=== PATIENT | female | born 1985 | race Caucasian/White ===

== ENCOUNTER 2020-08-02 08:07 | Outpatient (REF) | payer OTHER, SELFPAY ==
[2020-08-09 05:27] LABS: HPV 16 RNA NOT DETECTED (NOT DETECTED); HPV mRNA E6/E7 Detected (Not Detected)
== END 2020-08-02 08:08 | disposition home or self-care (01) ==
LOC: HO.LAB 08:07
PROVIDERS: Visit Provider Obstetrics & Gynecology
DX: Z01.419 Encounter for gynecological examination (general) (routine) without abnormal findings (principal); N87.0 Mild cervical dysplasia
CPT/HCPCS: 87624; 87625; 88141; 88142

== ENCOUNTER 2020-09-14 07:55 | Outpatient (REF) | payer OTHER, SELFPAY | END 2020-09-14 07:56 | disposition home or self-care (01) | LOC: HO.LAB 07:55 | PROVIDERS: Visit Provider Obstetrics & Gynecology | DX: A63.0 Anogenital (venereal) warts (principal); N87.0 Mild cervical dysplasia | CPT/HCPCS: 57454; 88305 ==

== ENCOUNTER → 2020-10-15 14:57 | Outpatient (BNVA) | payer OTHER, SELFPAY | PROVIDERS: PCP Internal Medicine; Visit Provider Obstetrics & Gynecology | DX: Z76.89 Persons encountering health services in other specified circumstances (principal) ==

== ENCOUNTER 2021-04-02 13:03 | Outpatient (REF) | payer OTHER, SELFPAY ==
--- NOTE | ~2021-04-02 | MM_ITS ---
EXAMINATION: MM DIAGNOSTIC DIGITAL BREAST TOMOSYNTHESIS, BILATERAL US DIAGNOSTIC ULTRASOUND BREAST, RIGHT CLINICAL INFORMATION: 35-year-old with palpable mass outer right breast noted for one month. No prior breast imaging. No known family history breast cancer. The lifetime risk of breast cancer based on the Tyrer-Cuzick Model is 9%. COMPARISON: None (current study represents initial baseline exam). TECHNIQUE: Digital mammography is performed in craniocaudal and mediolateral oblique views. Digital breast tomosynthesis is performed in implant-displaced craniocaudal and implant-displaced mediolateral oblique views. Synthesized 2D images are generated from the tomosynthesis. Computer-aided detection (CAD) is performed for this exam. Additional implant displaced spot right MLO view is obtained. Ultrasound right breast is targeted to the outer and upper outer quadrant. Grayscale imaging and color Doppler are performed without and with harmonics. FINDINGS: There are scattered areas of fibroglandular density (ACR BI-RADS breast composition Category b). There are bilateral implants. The implant margins are smooth. The left breast shows no mass or architectural abnormality. Neither breast shows abnormal calcifications. The right breast has a circumscribed 3 cm mass at site of palpable concern mid 9:00 position. Ultrasound demonstrates an oval hypoechoic mass with scattered internal echoes 8:00 position 3 cm from nipple measuring 3.0 x 1.3 x 2.5 cm. There is no increased or decreased through transmission of sound. Margins are smooth. There is some scattered peripheral color flow. Some scant internal color flow is suggested. Results are discussed with the patient at time of visit. Ultrasound-guided aspiration of the right breast mass is recommended. If the lesion will not fully aspirate, then core sampling would be recommended at same appointment. Results called to medical laboratory technologist (Suzan) for Dr. Nielsen on 04/02/2021. MM/MM tomosynthesis diag imp BI IMPRESSION: 1. Right: 3 cm mass outer right breast corresponding to palpable concern. 2. Left: No mammographic evidence of malignancy. ASSESSMENT: BI-RADS 4: Suspicious (subcategory 4A: Low suspicion for malignancy) RECOMMENDATION: Attempt at ultrasound-guided aspiration. If lesion will not fully aspirate to resolution, then conversion to ultrasound-guided core sampling would be recommended at same appointment. This patient's information was entered into a reminder system with a target due date for their next mammogram.
== END 2021-04-02 13:04 | disposition home or self-care (01) ==
LOC: HO.MAMMO 13:03
PROVIDERS: PCP Internal Medicine; Visit Provider Internal Medicine
DX: N63.14 Unspecified lump in the right breast, lower inner quadrant (principal)
CPT/HCPCS: 76642; 77062; 77066

== ENCOUNTER → 2021-04-05 08:06 | Outpatient (BNVA) | payer OTHER, SELFPAY | PROVIDERS: PCP Internal Medicine; Visit Provider Surgery | DX: R92.8 Other abnormal and inconclusive findings on diagnostic imaging of breast (principal) | CPT/HCPCS: 99202 ==

== ENCOUNTER 2021-04-08 07:46 | Outpatient (REF) | payer OTHER, SELFPAY ==
--- NOTE | ~2021-04-08 | MM_ITS ---
EXAMINATION: MM DIAGNOSTIC DIGITAL MAMMOGRAPHY, RIGHT CLINICAL INFORMATION: Status post ultrasound-guided core biopsy COMPARISON: Mammography: April 02, 2021 TECHNIQUE: Digital mammography is performed in craniocaudal and mediolateral oblique views along with computer-aided detection (CAD). FINDINGS: DIGITAL POST-PROCEDURE MAMMOGRAPHY: Breast density: The tissue contains scattered areas of fibroglandular density. BI-RADS version 5, category B. There are no new mammographic findings demonstrated. The postprocedure 2-view direct digital mammogram reveals satisfactory positioning of the biopsy clip. The patient tolerated the procedure well and, after assuring adequate hemostasis, was discharged in good condition after reviewing postbiopsy breast care instructions. Final pathology results are pending. MM/MM diagnostic mammo unilat RT IMPRESSION: 1. No immediate complication from ultrasound-guided percutaneous biopsy right breast. 2. Ultrasound was used to localize and guide marker clip placement. 3. The 2-view direct digital postprocedure mammogram reveals satisfactory positioning of the biopsy clip. 4. Final pathology results are pending. A separate report with final recommendations will be issued once these results are made available. .
--- NOTE | ~2021-04-08 | US_ITS ---
PROCEDURE: US GUIDED BREAST BIOPSY, RIGHT BREAST CLINICAL INFORMATION: Hypoechoic mass. COMPARISON: 04/02/2021 PROCEDURAL DETAILS: The details of the procedure, as well as the risks, benefits, and alternatives to the procedure were explained to the patient in detail and all of her questions were answered, after which written informed consent was obtained. Site and side were confirmed. Prior to the procedure, sonography revealed at the 8 o'clock position of the right breast approximately 3 cm from nipple, there is a well-circumscribed hypoechoic lesion which is wider than it is tall without internal vascularity. No significant sound shadowing or sound enhancement is identified. The lesion measures approximately 3 cm in largest dimension.. A time-out was performed, the lesion intended for biopsy was targeted, and the skin of the right breast was then prepped and draped in the usual sterile fashion. Using sonographic guidance, sterile technique, and 1% lidocaine without epinephrine for local anesthesia, multiple automated core biopsies were obtained through the targeted area with a 14G spring loaded Achieve core biopsy device. There was real-time confirmation of appropriate needle passage. Sampling was documented. At the completion of tissue sampling, a single stoplight-shaped metallic clip was deposited at the biopsy site. There was no evidence of immediate complication. SPECIMEN: An appropriate sample was obtained. DIGITAL POST-PROCEDURE MAMMOGRAPHY: Breast density: The tissue contains scattered areas of fibroglandular density. BI-RADS version 5, category B. There are no new mammographic findings demonstrated. The postprocedure 2-view direct digital mammogram reveals satisfactory positioning of the biopsy clip. The patient tolerated the procedure well and, after assuring adequate hemostasis, was discharged in good condition after reviewing postbiopsy breast care instructions. Final pathology results are pending. US/US breast ndl core biopsy RT IMPRESSION: 1. No immediate complication from ultrasound-guided percutaneous biopsy right breast. 2. Ultrasound was used to localize and guide marker clip placement. 3. The 2-view direct digital postprocedure mammogram reveals satisfactory positioning of the biopsy clip. 4. Final pathology results are pending. A separate report with final recommendations will be issued once these results are made available.
== END 2021-04-08 07:47 | disposition home or self-care (01) ==
LOC: HO.MAMMO 07:46
PROVIDERS: PCP Internal Medicine; Visit Provider Surgery
DX: R92.8 Other abnormal and inconclusive findings on diagnostic imaging of breast (principal)
CPT/HCPCS: 19083; 77065; 88305

== ENCOUNTER 2021-08-29 14:21 | Outpatient (REF) | payer OTHER, SELFPAY ==
[2021-09-04 09:41] LABS: HPV 16 RNA NOT DETECTED (NOT DETECTED); HPV mRNA E6/E7 rflx Detected (Not Detected)
== END 2021-08-29 14:22 | disposition home or self-care (01) ==
LOC: HO.LAB 14:21
PROVIDERS: PCP Internal Medicine; Visit Provider Obstetrics & Gynecology
DX: Z01.419 Encounter for gynecological examination (general) (routine) without abnormal findings (principal); N87.0 Mild cervical dysplasia
CPT/HCPCS: 87624; 87625; 88142

== ENCOUNTER → 2021-10-14 14:07 | Outpatient (BNVA) | payer OTHER, SELFPAY | PROVIDERS: PCP Internal Medicine; Visit Provider Obstetrics & Gynecology ==

== ENCOUNTER 2021-10-31 11:37 | Outpatient (REF) | payer OTHER, SELFPAY | END 2021-10-31 11:38 | disposition home or self-care (01) | LOC: HO.LAB 11:37 | PROVIDERS: PCP Internal Medicine; Visit Provider Obstetrics & Gynecology | DX: A63.0 Anogenital (venereal) warts (principal); Z32.02 Encounter for pregnancy test, result negative | CPT/HCPCS: 57454; 81025; 88305; 88341; 88342; 88360 ==

== ENCOUNTER → 2021-11-14 14:37 | Outpatient (BNVA) | payer OTHER, SELFPAY | PROVIDERS: PCP Internal Medicine; Visit Provider Obstetrics & Gynecology ==

== ENCOUNTER → 2021-11-25 14:41 | Outpatient (BNVA) | payer OTHER, SELFPAY | PROVIDERS: PCP Internal Medicine; Visit Provider Obstetrics & Gynecology | DX: N87.0 Mild cervical dysplasia (principal) | CPT/HCPCS: 99212 ==

== ENCOUNTER 2021-11-28 06:43 | Day surgery (SDC) | payer OTHER, SELFPAY ==
[2021-11-21 13:30] VITALS: BMI 27.6
--- NOTE | 2021-11-27 10:52 | HO.ANESPROP2 ---
Documented by User: Alisha Santos NP 11/27/21 10:52 HPI - Anesthesia Eval Consult details Narrative: 36yo F for LEEP PMFSH Active Problems Active Problems: All Active Problems (Updated 11/21/21 @ 13:27 by Jennifer Doherty, LOYDA) Well woman exam (Acute) Abnormal ultrasound of breast (Acute) Contraceptive management (Acute) HPV in female (Acute) TOMASA I (cervical intraepithelial neoplasia I) (Acute) Past Medical History Medical History TOMASA I (cervical intraepithelial neoplasia I) COVID-19 vaccine series completed History of asthma Family History Family History Maternal Grandmother Diabetes HTN (hypertension) Surgical History Surgical History Hx of abdominoplasty Hx of appendectomy Hx of breast augmentation Social History Social History Household Members Other:: son (minor child) Are you a primary student career development specialist to a significant other at home: Yes Do you presently have visiting nurse or other home services: No Alcohol intake: never Patient Tobacco Use Status: Never used Tobacco Use of substances other than those prescribed or required for medical reasons: No Are you DNR?: No Advance Directives: No (mother is primary contact/does not have official HCP form) Advance Directives Information Provided: Yes Advance Directives on File: No Recently lost weight without trying: No Eating poorly because of decreased appetite: No Nutrition Risks: No Nutritional Risk Patient : No FDLMP: 11/11/21 Sexual orientation: Straight/Heterosexual Gender identity: Female Meds Allergies Allergy/AdvReac Type Severity Reaction Status Date / Time aspirin Allergy Unknown Unknown Verified 11/25/21 14:59 Home Medications Medication Instructions Recorded Confirmed Last Taken Type albuterol sulfate 90 mcg/actuation 2 puff INHALATION Q4-6H PRN 08/02/20 11/21/21 Unknown History aerosol inhaler (ProAir HFA) etonogestrel 68 mg subdermal 1 implant SUBDERMAL ONCE 08/02/20 11/21/21 Unknown History implant (Nexplanon) Exam Exam Date and Time: November 27, 2021 1052 Height,Weight and Vital Signs: Height 5 ft 1 in Weight 66.224 kg Assessment and Plan Assessment Anesthesia Assessment: Chart Reviewed Documented by User: Khalida Najera MD 11/28/21 08:17 PMF Past Medical History Medical History TOMASA I (cervical intraepithelial neoplasia I) COVID-19 vaccine series completed History of asthma Family History Family History Maternal Grandmother Diabetes HTN (hypertension) Surgical History Surgical History Hx of abdominoplasty Hx of appendectomy Hx of breast augmentation History of Problems with Anesthesia: No Social History Social History Household Members Other:: son (minor child) Are you a primary student career development specialist to a significant other at home: Yes Do you presently have visiting nurse or other home services: No Alcohol intake: never Patient Tobacco Use Status: Never used Tobacco Use of substances other than those prescribed or required for medical reasons: No Are you DNR?: No Advance Directives: No (mother is primary contact/does not have official HCP form) Advance Directives Information Provided: Yes Advance Directives on File: No Recently lost weight without trying: No Eating poorly because of decreased appetite: No Nutrition Risks: No Nutritional Risk Patient : No FDLMP: 11/11/21 Sexual orientation: Straight/Heterosexual Gender identity: Female Meds Allergies Allergy/AdvReac Type Severity Reaction Status Date / Time aspirin Allergy Unknown Unknown Verified 11/25/21 14:59 Home Medications Medication Instructions Recorded Confirmed Last Taken Type albuterol sulfate 90 mcg/actuation 2 puff INHALATION Q4-6H PRN 08/02/20 11/21/21 Unknown History aerosol inhaler (ProAir HFA) etonogestrel 68 mg subdermal 1 implant SUBDERMAL ONCE 08/02/20 11/21/21 Unknown History implant (Nexplanon) Exam Airway Mallampati Class: II TM Dist: >3cm Neck ROM: Full Loose/Missing/Broken Teeth: No Heart: RRR Lungs: CTA Assessment and Plan Assessment Anesthesia Assessment: Anesthesia Plan Discussed Final Anesthetic Review History of Problems with Anesthesia: No NPO: Yes ASA Class: II Final Preanesthetic Review: Meds/Allgs Chart Reviewed, Consent Obtained/Reviewed and Anes Risks/Benef Reviewed Patient Risk: Low Procedure Risk: Low Anesthetic Plan Anesthetic Plan: GA Disposition: Standard PACU
[2021-11-28] VITALS (10 sets, daily range): BP systolic 107–135; BP diastolic 62–82; PULSE 67–103; RESP 16–18; TEMP 36.5; O2SAT 99–100
[2021-11-28 07:07] LABS: UPreg QC Valid YES; Urine Pregnancy NEGATIVE (NEGATIVE)
[2021-11-28] MEDS: Lactated Ringers 1,000 ML 100 ML IVCONT (07:09)
--- NOTE | 2021-11-28 07:37 | MHC.SHP ---
Pre-Procedural Eval Section A Date of Service: 11/28/21 The patient is an INPATIENT: No Changes since office visit: No Cold of Flu in the past 2 weeks, No New Medical Problems, No Changes in Medication and No Patient answered all questions The History & Physical has been completed within 30 days and I have reviewed it.: Yes Section B Chief Complaint: C1N1 Allergies: Allergies Allergy/AdvReac Type Severity Reaction Status Date / Time aspirin Allergy Unknown Unknown Verified 11/25/21 14:59 Plan Diagnosis/Plan: Unchanged I have reviewed the history and physical and performed a pertinent physical examination on my patient. No changes have occurred unless specified.
[2021-11-28] MEDS: Scopolamine 1.5 MG PATCH.TD.3 EAR-BEHIND (08:26)
--- NOTE | 2021-11-28 09:00 | P.BOP_ITS ---
Brief Operative Note Date of Service: 11/28/21 Pre-op diagnosis: Persistent TOMASA 1 with negative ECC Post-op diagnosis: same Procedure: LEEP Surgeon: Myron Pham MD Anesthesia: MAC, local and other (Paracervical block) Was an Turret Punch Press Operator used for this Procedure?: No Estimated blood loss (mL): 0 Pathology: other (Ant+post Cerv lip) Condition: stable Disposition: other (Home)
--- NOTE | 2021-11-28 09:01 | W.PM.OPN ---
Operative Note Operative Note Date of Service: 11/28/21 Narrative: Preop diagnosis: Persistent TOMASA 1 with negative ECC Operation: LEEP Post op diagnosis: same Anesthesia: paracervical block with MAC Complications: none Pathology: Anterior and Posterior cervical lip QBL: minimal Procedure: The patient was put in the dorsal lithotomy position, was prepped and draped in the usual sterile fashion. A sterile speculum was inserted inside the patient vagina. Using Lugol solution the cervix with Dyed with Lugol solution to identifiy the abnormal demarcating line. 10 cc of Marcaine0.5% with epinephrine were given at 2,4 , 8, and 10 o'clock. Using a medium-size loop wire, the anterior cervical lip was excised followed by the posterior cervical lip. Hemostasis was assured using cautery and Monsel solution. All instruments were taken out of the patient's vaginal cavity. the patient tolerated the procedure well and was discharged home with the following instructions: call if temperature is above 100.4, vaginal bleeding, abdominal pain or nausea or vomiting. Follow-up in the office in 2 weeks for postop visit
[2021-11-28] MEDS: fentaNYL citrate/PF 100 MCG/2 ML VIAL 25 MCG IVPUSH (09:31)
[2021-11-28] MEDS: Acetaminophen 325 MG TABLET 650 MG PO (09:31)
[2021-11-28] MEDS: oxyCODONE HCl Immed Release 5 MG TABLET PO (09:32)
== END 2021-11-28 10:50 | disposition home or self-care (01) ==
PROVIDERS: PCP Internal Medicine; Visit Provider Obstetrics & Gynecology
PROC: 0UBC7ZZ Excision of Cervix, Via Natural or Artificial Opening (ICD-10-PCS; CPT 57522; principal; 2021-11-28 08:20)
DX: N87.0 Mild cervical dysplasia (principal); J45.909 Unspecified asthma, uncomplicated; Z88.8 Allergy status to other drugs, medicaments and biological substances
CPT/HCPCS: 57522; 81025; 88307; J2250; J2405; J3010

== ENCOUNTER → 2021-12-12 15:52 | Outpatient (BNVA) | payer OTHER, SELFPAY | PROVIDERS: Visit Provider Obstetrics & Gynecology ==

== ENCOUNTER → 2022-06-11 11:48 | Outpatient (BNVA) | payer OTHER, SELFPAY | PROVIDERS: PCP Internal Medicine; Visit Provider Obstetrics & Gynecology | DX: Z30.09 Encounter for other general counseling and advice on contraception (principal); Z97.5 Presence of (intrauterine) contraceptive device | CPT/HCPCS: 99212 ==

== ENCOUNTER → 2022-06-25 14:37 | Outpatient (BNVA) | payer OTHER, SELFPAY | PROVIDERS: PCP Internal Medicine; Visit Provider Surgery | DX: D24.1 Benign neoplasm of right breast (principal) | CPT/HCPCS: 99212 ==

== ENCOUNTER 2022-07-16 05:57 | Day surgery (SDC) | payer OTHER, SELFPAY ==
[2022-07-11 09:59] VITALS: BMI 27.0
--- NOTE | 2022-07-15 08:24 | P.CONAN_ITS ---
Documented by User: Alisha Santos NP 07/15/22 08:24 HPI - Anesthesia Eval Consult details Narrative: 36yo F for Right Right Breast Mass Excision of Phyllodes Tumor PMFSH Active Problems Active Problems: All Active Problems (Updated 06/27/22 @ 10:04 by Regulo Murphy MD) Well woman exam (Acute) Abnormal ultrasound of breast (Acute) Contraceptive management (Acute) HPV in female (Acute) Family planning (Acute) Benign phyllodes tumor of right breast (Acute) TOMASA I (cervical intraepithelial neoplasia I) (Acute) Past Medical History Medical History TOMASA I (cervical intraepithelial neoplasia I) COVID-19 vaccine series completed History of asthma Scoliosis Family History Family History Maternal Grandmother Diabetes HTN (hypertension) Surgical History Surgical History History of loop electrical excision procedure (LEEP) Hx of abdominoplasty Hx of appendectomy Hx of breast augmentation (2017) History of Problems with Anesthesia: No Social History Social History Household Members Other:: son (minor child) Are you a primary critical care registered nurse to a significant other at home: Yes Do you presently have visiting nurse or other home services: No Alcohol intake: never Patient Tobacco Use Status: Never used Tobacco Are you DNR?: No Advance Directives: No Advance Directives Information Provided: Yes Recently lost weight without trying: No Sexual orientation: Straight/Heterosexual Gender identity: Female Meds Allergies Allergy/AdvReac Type Severity Reaction Status Date / Time aspirin Allergy Unknown Unknown Verified 06/25/22 14:48 Home Medications Medication Instructions Recorded Confirmed Last Taken Type albuterol sulfate 90 mcg/actuation 2 puff inhalation Q4-6H PRN 08/02/20 07/11/22 Unknown History aerosol inhaler (ProAir HFA) Wheezing etonogestrel 68 mg subdermal 1 implant subdermal ONCE 08/02/20 06/27/22 Unknown History implant (Nexplanon) Exam Exam Date and Time: July 15, 2022 0824 Height,Weight and Vital Signs: Height 5 ft 1 in Weight 64.864 kg Assessment and Plan Assessment Anesthesia Assessment: Chart Reviewed Final Anesthetic Review History of Problems with Anesthesia: No Documented by User: Marysol Gonzalez MD 07/16/22 07:59 [facility] Past Medical History Medical History TOMASA I (cervical intraepithelial neoplasia I) COVID-19 vaccine series completed History of asthma Scoliosis Functional capacity: independent ambulation Patient : No Family History Family History Maternal Grandmother Diabetes HTN (hypertension) Family history of problems with anesthesia: No Surgical History Surgical History History of loop electrical excision procedure (LEEP) Hx of abdominoplasty Hx of appendectomy Hx of breast augmentation (2017) Social History Social History Household Members Other:: son (minor child) Are you a primary critical care registered nurse to a significant other at home: Yes Do you presently have visiting nurse or other home services: No Alcohol intake: never Patient Tobacco Use Status: Never used Tobacco Are you DNR?: No Advance Directives: No Advance Directives Information Provided: Yes Recently lost weight without trying: No Sexual orientation: Straight/Heterosexual Gender identity: Female Meds Allergies Allergy/AdvReac Type Severity Reaction Status Date / Time aspirin Allergy Unknown Unknown Verified 06/25/22 14:48 Home Medications Medication Instructions Recorded Confirmed Last Taken Type albuterol sulfate 90 mcg/actuation 2 puff inhalation Q4-6H PRN 08/02/20 07/11/22 Unknown History aerosol inhaler (ProAir HFA) Wheezing etonogestrel 68 mg subdermal 1 implant subdermal ONCE 08/02/20 06/27/22 Unknown History implant (Nexplanon) Exam Airway Mallampati Class: II TM Dist: >3cm Heart: RRR Lungs: CTA Assessment and Plan Final Anesthetic Review Family History of Problems with Anesthesia: No ASA Class: II Final Preanesthetic Review: No Changes in Pt Med Stat, Meds/Allgs Chart Reviewed, Consent Obtained/Reviewed and Anes Risks/Benef Reviewed Patient Risk: Low Procedure Risk: Low Anesthetic Plan Anesthetic Plan: GA Disposition: Standard PACU
[2022-07-16 06:18] VITALS: BP 122/74; PULSE 61; RESP 18; TEMP 36.4; O2SAT 100
[2022-07-16 06:18] LABS: UPreg QC Valid YES; Urine Pregnancy NEGATIVE (NEGATIVE)
[2022-07-16] MEDS: Lactated Ringers 1,000 ML 100 ML IVCONT (06:31)
--- NOTE | 2022-07-16 07:26 | MHC.SHP ---
Pre-Procedural Eval Section A Date of Service: 07/16/22 The patient is an INPATIENT: No Changes since office visit: Yes Patient answered all questions; No Cold of Flu in the past 2 weeks, No New Medical Problems and No Changes in Medication The History & Physical has been completed within 30 days and I have reviewed it.: Yes Section B Chief Complaint: Benign neoplasm of right breast Allergies: Allergies Allergy/AdvReac Type Severity Reaction Status Date / Time aspirin Allergy Unknown Unknown Verified 06/25/22 14:48 Plan Diagnosis/Plan: Unchanged I have reviewed the history and physical and performed a pertinent physical examination on my patient. No changes have occurred unless specified.
--- NOTE | 2022-07-16 08:18 | P.OP_ITS ---
Operative Note Operative Note Date of Service: 07/16/22 Narrative: Preoperative diagnosis: phyllodes tumor right breast Postoperative diagnosis: same Procedure: excision phyllodes tumor right breast (lumpectomy) Surgeon: Regulo Murphy MD Division Superintendent: Elizabeth Ordonez PA-C, Rahul MEJIA Anesthesia: general LMA Indications for procedure: 36-year-old female patient with enlarging lesion in right breast at the 9 o'clock position felt to be a phyllodes tumor. Operative findings: 4 cm round phyllodes tumor excised with a rim of normal breast tissue. Specimen: Right breast phyllodes tumor Estimated blood loss: 5 mL Complications: none Procedure details: patient brought to the OR placed in a supine position. After administering general anesthesia the patient's right breast was prepped with ChloraPrep and draped in a sterile fashion. A surgical time-out was called the consent confirmed. Patient received preoperative antibiotics and Venodyne boots were in place. Local anesthesia was placed between the 8 in 10 o'clock position in the areola. A curvilinear incision was made at the margin of the areola and skin in the same region. This was carried out through subcutaneous tissue. The skin flap was then created using electrocautery over the palpable mass. Allis clamps were then used to bring up the lesion within the incision. Electrocautery was then used to dissect inferior, superior, and posterior to the lesion. The lateral margin was then excised and the lesion passed off the table. Lesion was marked with sutures on the lateral, superior, and deep margins. Wounds were then irrigated with saline solution and checked for hemostasis. Deep breast tissue was then reapproximated using interrupted 3-0 Polysorb sutures. Dermis was then reapproximated using interrupted 3-0 Polysorb sutures. Skin was closed using a running subcuticular 4-0 Polysorb suture. Steri-Strips, 2 x 2 gauze and Tegaderm were then applied. The patient tolerated the procedure well. Sponge, instrument, and needle counts reported as correct. Patient was transferred to PACU in stable condition.
[2022-07-16 08:30] VITALS: BP 124/80; PULSE 75; RESP 16; TEMP 36.1; O2SAT 97
[2022-07-16 08:35] VITALS: BP 118/73; PULSE 63; RESP 16; O2SAT 98
[2022-07-16 08:40] VITALS: BP 122/78; PULSE 60; RESP 16; O2SAT 98
[2022-07-16 08:45] VITALS: BP 125/84; PULSE 62; RESP 16; TEMP 36.1; O2SAT 98
[2022-07-16 09:00] VITALS: BP 132/79; PULSE 51; RESP 16; TEMP 36.1; O2SAT 98
--- NOTE | 2022-07-16 09:05 | HO.POSTANES ---
Post Anesthesia Evaluation Post Anesthesia Evaluation Vital Signs: Vital Signs Temp Pulse Resp BP Pulse Ox O2 Del Method 07/16/22 08:45 97 F 62 16 125/84 98 Room Air 07/16/22 08:40 60 16 122/78 98 Room Air 07/16/22 08:35 63 16 118/73 98 Room Air 07/16/22 08:30 97 F 75 16 124/80 97 Room Air 07/16/22 06:18 97.6 F 61 18 122/74 100 Room Air Anesthesia: General LMA Mental Status: Awake Pain Control: Satisfactory Nausea/Vomiting: None Hydration: Adequate Anesthesia-Related Issues: No Anes. Related Issues
== END 2022-07-16 09:32 | disposition home or self-care (01) ==
PROVIDERS: Nurse Practitioner; PCP Internal Medicine; Visit Provider Surgery
PROC: (CPT 19120; principal; 2022-07-16 07:30)
DX: D24.1 Benign neoplasm of right breast (principal); J45.909 Unspecified asthma, uncomplicated; N87.0 Mild cervical dysplasia; M41.9 Scoliosis, unspecified; Z98.82 Breast implant status; Z88.8 Allergy status to other drugs, medicaments and biological substances
CPT/HCPCS: 19301; 81025; 88307; J0690; J1100; J2250; J2405; J2795; J3010

== ENCOUNTER → 2022-09-11 12:53 | Outpatient (BNVA) | payer OTHER, SELFPAY | PROVIDERS: PCP Internal Medicine; Visit Provider Obstetrics & Gynecology | DX: Z30.46 Encounter for surveillance of implantable subdermal contraceptive (principal) | CPT/HCPCS: 11982 ==

== ENCOUNTER 2023-01-20 11:52 | Outpatient (REF) | payer OTHER, SELFPAY ==
[2023-01-22 22:23] LABS: HPV mRNA E6/E7 rflx Not Detected (Not Detected)
== END 2023-01-20 11:53 | disposition home or self-care (01) ==
LOC: HO.LNP 11:52
PROVIDERS: PCP Internal Medicine; Visit Provider Obstetrics & Gynecology
DX: Z01.419 Encounter for gynecological examination (general) (routine) without abnormal findings (principal); Z11.51 Encounter for screening for human papillomavirus (HPV); D25.9 Leiomyoma of uterus, unspecified
CPT/HCPCS: 87624; 88142

== ENCOUNTER 2023-02-06 12:29 | Outpatient (REF) | payer OTHER, SELFPAY ==
--- NOTE | ~2023-02-06 | US_ITS ---
EXAMINATION: US PELVIS CLINICAL INFORMATION: Leiomyoma of uterus. COMPARISON: None available. TECHNIQUE: Ultrasound of the pelvis is performed using both transabdominal and transvaginal transducers along with Doppler. Transvaginal imaging is performed due to inadequate visualization transabdominally. FINDINGS: Uterus: The uterus is retroverted and measures 7.5 x 3.4 x 3.3 cm. The double wall endometrial thickness is 4 mm. The uterus is smooth in contour and has normal myometrial echogenicity. No visible fibroid. The IUD appears low lying about 1 cm from the tip of the fundal endometrium. Adnexa: Both ovaries are visualized. There is normal color flow to the adnexa. There is no ovarian torsion. There is no pelvic ascites or fluid collection. Right ovary measures 3.4 x 2.0 x 3.4 cm. Volume 12.1 mL. Left ovary measures 3.8 x 1.9 x 2.1 cm. Volume 7.9 mL. US/US pelvic and transvaginal IMPRESSION: The IUD appears low lying about 1 cm from the tip of the fundal endometrium.
== END 2023-02-06 12:30 | disposition home or self-care (01) ==
LOC: HO.US 12:29
PROVIDERS: PCP Internal Medicine; Visit Provider Obstetrics & Gynecology
DX: D25.9 Leiomyoma of uterus, unspecified (principal)
CPT/HCPCS: 76830; 76856

== ENCOUNTER 2023-02-17 11:56 | Outpatient (REF) | payer OTHER, SELFPAY ==
[2023-02-18 06:45] LABS: CT PCR NOT DETECTED (Not Detect.); NG PCR NOT DETECTED (Not Detect.)
== END 2023-02-17 11:57 | disposition home or self-care (01) ==
LOC: HO.LNP 11:56
PROVIDERS: PCP Internal Medicine; Visit Provider Obstetrics & Gynecology
DX: Z30.433 Encounter for removal and reinsertion of intrauterine contraceptive device (principal); D25.9 Leiomyoma of uterus, unspecified; Z20.2 Contact with and (suspected) exposure to infections with a predominantly sexual mode of transmission
CPT/HCPCS: 0353U; 58300; 58301; J7298

== ENCOUNTER → 2023-03-18 12:38 | Outpatient (BNVA) | payer OTHER, SELFPAY | PROVIDERS: PCP Internal Medicine; Visit Provider Obstetrics & Gynecology | DX: Z30.431 Encounter for routine checking of intrauterine contraceptive device (principal) | CPT/HCPCS: 81025 ==

== ENCOUNTER 2023-04-30 13:36 | Outpatient (AMB) | payer OTHER, SELFPAY ==
[2023-04-30 13:45] VITALS: BMI 26.1
--- NOTE | 2023-04-30 13:45 | MHC.OFFVIS ---
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 Pt states Left LE is worse than Right LE, Pt states she has heaviness, burning and pain over spider vein clusters more on the left LE. Pt states it has been the last few months it has gotten worse but has had issue for years. 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 Complaints include pain over varicosities, swelling of lower extremities, cramping, fatigue, and heaviness of the lower extremities. 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 It is noted more so in left leg. Please note powerhouse mechanic apprentice was present during the entire visit Patient denies any previous venous surgery or injections. Patient denies any history of DVT/ PE. Patient denies any history of phlebitis. Trial of compression includes - [id number] They now present for vascular evaluation regarding their varicose veins. [facility] Medical History TOMASA I (cervical intraepithelial neoplasia I) COVID-19 vaccine series completed History of asthma Scoliosis Surgical History History of loop electrical excision procedure (LEEP) History of lumpectomy of right breast (07/16/22) Hx of abdominoplasty Hx of appendectomy Hx of breast augmentation (2016) Family History Maternal Grandmother Diabetes HTN (hypertension) Social History Household Members Other:: son (minor child) Are you a primary pet caregiver to a significant other at home: Yes Do you presently have visiting nurse or other home services: No Alcohol intake: never Patient Tobacco Use Status: Never used Tobacco Sexual orientation: Straight/Heterosexual Gender identity: Female Female Reproductive History Menstrual Age of Menarche: 15 Review of Systems Const Reports as per HPI ENT Reports no additional complaints Card Denies chest pain, Denies chest pain at rest and Denies chest pain with activity Resp Denies chest congestion and Denies cough GI Reports no additional complaints Musc Details: pain over varicosities, aching of lower extremities, swelling, cramping, heaviness and tiredness, itching Denies abnormal gait Skin/Breast Reports pruritus and Denies wounds Neuro Reports no additional complaints and Denies abnormal gait Psych Denies no additional complaints Physical Exam Vital Signs: BMI result Body Mass Index 26.1 Const General: cooperative, healthy appearing and comfortable Orientation/consciousness: oriented to person, oriented to place and oriented to time Neck Carotids: no bruits Chest Chest palpation & inspection: normal inspection of the chest and normal palpation of entire chest wall Resp Effort & Inspection: normal respiratory effort and able to speak in complete sentences Cardio Rate: regular rate Heart sounds: S1 normal heart sound present and S2 normal heart sound present Peripheral pulses: Peripheral pulses 2+ throughout GI Inspection: Yes normal to inspection Skin Other: +2 edema, left calf General skin exam: dry skin Neuro General: oriented to person, oriented to place and oriented to time Extrem Right lower extremity: full ROM, normal capillary refill and edema Left lower extremity: full ROM, normal capillary refill and edema Psych Mental Status: mental status grossly normal Assessment & Plan Assessment & Plan (1) Varicose veins of left lower extremity with inflammation: Code(s): I83.12 - Varicose veins of left lower extremity with inflammation Plan: In short, the patient has evidence of venous insufficiency. I have discussed the pathophysiology with the patient. In addition I have provided informational material regarding venous disease to the patient. We have discussed conservative measures including compression, elevation, and exercise. I have also provided a handout regarding appropriate use of compression stockings and where to purchase good compression stockings as well. I have taken the liberty of ordering venous insufficiency testing with the patient. They will follow up with me after testing. The patient had an opportunity to ask questions regarding the treatment plan. All questions were answered. Imaging studies, laboratory studies and physical exam results were discussed and reviewed in detail. No major barriers to understanding were identified. The patient expressed understanding and agreement with the above treatment plan. The patient is aware they should contact our office by phone for worsening of the current condition or the appearance of new symptoms. Thank you for allowing me to participate in the vascular care of this patient. If you have any questions or concerns regarding the treatment for the above condition please do not hesitate to contact me. The office telephone contact is [phone]. This note is constructed using voice recognition software. While every effort has been made to ensure accuracy, investment strategist errors may have been included. Thank you for allowing me to participate in the care of your patient. Yours sincerely, Amilcar Ruffin MD, FACS, R.P.V.I. Orders: Orders US venous duplex LE BI 1 Week I83.12 - Varicose veins of left lower extremity with inflammation Coding Level of Care Code Est Pt Level 4 (33702) Diagnoses Varicose veins of left lower extremity with inflammation I83.12
== END 2023-04-30 14:29 | disposition home or self-care (01) ==
PROVIDERS: PCP Internal Medicine; Visit Provider Surgery Vascular Surgery
DX: I83.12 Varicose veins of left lower extremity with inflammation (principal)
CPT/HCPCS: 99213

== ENCOUNTER → 2023-04-30 13:36 | Outpatient (BNVA) | payer OTHER, SELFPAY | PROVIDERS: PCP Internal Medicine; Visit Provider Surgery Vascular Surgery ==

== ENCOUNTER 2023-05-12 14:40 | Outpatient (REF) | payer OTHER, SELFPAY ==
[2023-05-14 09:09] LABS: BV Int Neg Control Negative (Negative); BV Int Pos Control Positive (Positive)
== END 2023-05-12 14:41 | disposition home or self-care (01) ==
LOC: HO.LNP 14:40
PROVIDERS: Visit Provider Advanced Practice Midwife
DX: N76.0 Acute vaginitis (principal)
CPT/HCPCS: 87480; 87510; 87660

== ENCOUNTER 2023-05-15 12:23 | Outpatient (REF) | payer OTHER, SELFPAY ==
--- NOTE | ~2023-05-15 | US_ITS ---
EXAMINATION: US LOWER EXTREMITY VENOUS (REFLUX EXAM), BILATERAL CLINICAL INDICATION: Varicose veins COMPARISON: None. TECHNIQUE: Color flow triplex imaging and compression Doppler was performed to evaluate both the deep and the superficial systems bilaterally. To evaluate the superficial system, the examination was performed in the upright position. Color-flow Doppler ultrasound and compression ultrasound were utilized. In addition, maneuvers were utilized to demonstrate reflux. FINDINGS: 1. DEEP VENOUS ULTRASOUND OF THE RIGHT LOWER EXTREMITY: Common Femoral Vein: Compressible, normal respiratory variation and augmented flow. Femoral Vein: Compressible, normal color flow and augmentation. Popliteal Vein: Compressible, normal augmentation. Deep Reflux: There is no evidence of reflux in the deep system in either the common femoral vein or the popliteal vein. There is no evidence of a Mancilla's cyst. 2. SUPERFICIAL ULTRASOUND WITH DOPPLER OF RIGHT LOWER EXTREMITY: GREAT SAPHENOUS VEIN: Saphenofemoral Junction: 0.5 cm; Reflux: 0 ms Proximal Thigh: 0.3 cm; Reflux: 0 ms Mid Thigh: 0.3 cm; Reflux: 0 ms Above Knee: 0.3 cm; Reflux: 0 ms At Knee: Not visualized Below Knee: 0.1 cm; Reflux: 0 ms Mid Calf: 0.2 cm; Reflux: 0 ms Ankle: 0.1 cm; Reflux: 0 ms DUPLICATED MEDIAL GREAT SAPHENOUS VEIN: Diameter: None imaged Reflux: NA DUPLICATED LATERAL GREAT SAPHENOUS VEIN: Proximal: 0.3 cm; Reflux: 0 ms Distal: 0.2 cm; Reflux: 0 ms SMALL SAPHENOUS VEIN: Proximal: 0.6 cm; Reflux: 0 ms Distal: 0.3 cm; Reflux: 0 ms VEIN OF GIACOMINI: Size: NA Reflux: NA PERFORATORS: Location: Distal SSV Size: 0.2 cm Reflux: NA Location: Proximal calf Size: 0.2 cm Reflux: NA VARICOSITIES: Location: None imaged Size: NA Reflux: NA 3. DEEP VENOUS ULTRASOUND OF THE LEFT LOWER EXTREMITY: Common Femoral Vein: Compressible, normal respiratory variation and augmented flow. Femoral Vein: Compressible, normal color flow and augmentation. Popliteal Vein: Compressible, normal augmentation. Deep Reflux: There is no evidence of reflux in the deep system in either the common femoral vein or the popliteal vein. There is no evidence of a Mancilla's cyst. 4. SUPERFICIAL ULTRASOUND WITH DOPPLER OF LEFT LOWER EXTREMITY: GREAT SAPHENOUS VEIN: Saphenofemoral Junction: 0.6 cm; Reflux: 0 ms Proximal Thigh: 0.4 cm; Reflux: 2268 ms Mid Thigh: 0.3 cm; Reflux: 2200 ms Above Knee: 0.3 cm; Reflux: 0 ms At Knee: 2200 cm; Reflux: 0 ms Below Knee: 0.1 cm; Reflux: 0 ms Mid Calf: 0.1 cm; Reflux: 0 ms Ankle: 0.1 cm; Reflux: 0 ms DUPLICATED MEDIAL GREAT SAPHENOUS VEIN: Diameter: None imaged Reflux: NA DUPLICATED LATERAL GREAT SAPHENOUS VEIN: Proximal: 0.3 cm; Reflux: 0 ms Distal: 0.2 cm; Reflux: 0 ms SMALL SAPHENOUS VEIN: Proximal: 0.2 cm; Reflux: 0 ms Distal: 0.3. cm; Reflux: 0 ms VEIN OF GIACOMINI: Size: NA Reflux: NA PERFORATORS: Location: Mid SSV Size: 0.2 cm Reflux: NA Location: Distal thigh Size: 0.2 cm Reflux: NA Location: Distal calf Size: 0.2 cm Reflux: NA VARICOSITIES: Location: None Imaged Size: NA Reflux: NA US/US venous duplex LE BI IMPRESSION: Right: Small perforators in the calf, no venous reflux in the superficial or deep systems. Left: Venous reflux throughout the proximal great saphenous vein. Multiple perforators.
== END 2023-05-15 12:24 | disposition home or self-care (01) ==
LOC: HO.US 12:23
PROVIDERS: PCP Internal Medicine; Visit Provider Surgery Vascular Surgery
DX: I83.12 Varicose veins of left lower extremity with inflammation (principal)
CPT/HCPCS: 93970

== ENCOUNTER 2023-07-23 19:31 | Outpatient (REF) | payer OTHER, SELFPAY ==
[2023-07-24 05:10] LABS: CT PCR NOT DETECTED (Not Detect.); NG PCR NOT DETECTED (Not Detect.)
== END 2023-07-23 19:32 | disposition home or self-care (01) ==
LOC: HO.CHCLNP 19:31
PROVIDERS: Visit Provider Family Medicine
DX: N76.0 Acute vaginitis (principal); Z20.2 Contact with and (suspected) exposure to infections with a predominantly sexual mode of transmission
CPT/HCPCS: 0353U; 36415; 81513

== ENCOUNTER 2023-09-10 16:20 | Outpatient (REF) | payer OTHER, SELFPAY ==
[2023-09-11 19:53] LABS: C. trachomatis RNA TMA NOT DETECTED (NOT DETECTED); N. gonorrhoeae RNA TMA NOT DETECTED (NOT DETECTED)
== END 2023-09-10 16:21 | disposition home or self-care (01) ==
LOC: HO.CHCLDS 16:20
PROVIDERS: Visit Provider Family Medicine
DX: N39.0 Urinary tract infection, site not specified (principal); N76.0 Acute vaginitis
CPT/HCPCS: 36415; 81513; 87086; 87491; 87591

== ENCOUNTER 2023-09-25 08:31 | Outpatient (REF) | payer OTHER, SELFPAY ==
[2023-09-25 14:59] LABS: Hematocrit 45.3 % (37.0-47.0); Hemoglobin 14.7 g/dl (12.0-16.0); Mean Corpuscular HGB Conc 32.5 g/dl (31.0-35.0); Mean Corpuscular Hemoglobin 30.7 pg (27.0-33.0); Mean Corpuscular Volume 94.6 fL (80.0-98.0); Mean Platelet Volume 12.2 fL (9.4-12.3); Platelet Count 209 X10*3/uL (160-400); Red Blood Count 4.79 X10*6/uL (4.20-5.50); Red Cell Distribution Width 12.6 % (11.0-16.0); White Blood Count 6.3 X10*3/uL (4.8-10.8)
[2023-09-25 15:09] LABS: Alanine Aminotransferase 35 U/L (0-31); Albumin Level 4.2 g/dL (3.5-5.0); Alkaline Phosphatase 51 U/L (39-117); Anion Gap 11 (12-20); Aspartate Amino Transferase 25 U/L (5-31); Bilirubin Total 0.6 mg/dL (0.0-1.0); Blood Urea Nitrogen 15 mg/dL (9-16); Calcium 9.4 mg/dL (8.4-10.2); Carbon Dioxide 26 mmol/L (22-29); Chloride 104 mmol/L (96-108); Estimated Glomerular Filt Rate > 60; Glucose Random 69 mg/dL (60-115); Sodium 137 mmol/L (135-145); Total Protein 7.7 g/dL (6.5-8.0)
== END 2023-09-25 08:32 | disposition home or self-care (01) ==
LOC: HO.CHCLDS 08:31
PROVIDERS: Visit Provider Internal Medicine
DX: Z00.00 Encounter for general adult medical examination without abnormal findings (principal); M62.838 Other muscle spasm; Z20.2 Contact with and (suspected) exposure to infections with a predominantly sexual mode of transmission
CPT/HCPCS: 36415; 80053; 85027

== ENCOUNTER 2023-12-07 08:04 | Outpatient (REF) | payer OTHER, SELFPAY ==
[2023-12-07 15:15] LABS: Alanine Aminotransferase 26 U/L (0-31); Albumin Level 3.9 g/dL (3.5-5.0); Alkaline Phosphatase 57 U/L (39-117); Aspartate Amino Transferase 20 U/L (5-31); Bilirubin Direct 0.2 mg/dL (0.0-0.5); Bilirubin Total 0.5 mg/dL (0.0-1.0)
[2023-12-08 08:28] LABS: HBS Num1 13.38 mIU/mL (0-7.99); HBc Num1 0.09 S/CO (0.00-0.79); HBsAGNum1 0.56 S/CO (0.00-0.99); Hepatitis A Antibody IgM 0.18 Index (0-0.79); Hepatitis B Core Antibody Nonreactive (Nonreactive); Hepatitis B Surface Antigen Negative (Negative); ~HepC Num1 0.12 S/CO (0.00-0.79); ~Hepatitis A Antibody IgM Nonreactive (Nonreactive); ~Hepatitis B Surface Antibody REACTIVE (Nonreactive); ~Hepatitis C Antibody Nonreactive (Nonreactive)
== END 2023-12-07 08:05 | disposition home or self-care (01) ==
LOC: HO.CHCLDS 08:04
PROVIDERS: Visit Provider Internal Medicine
DX: R74.01 Elevation of levels of liver transaminase levels (principal)
CPT/HCPCS: 36415; 80076; 86704; 86706; 86709; 86803; 87340

== ENCOUNTER 2024-01-27 13:50 | Outpatient (AMB) | payer OTHER, SELFPAY ==
--- NOTE | 2024-01-27 13:58 | A.OFFVIS_ITS ---
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 No complaints. Last Pap/HPV was negative in 02/01 [facility] Medical History Scoliosis COVID-19 vaccine series completed TOMASA I (cervical intraepithelial neoplasia I) History of asthma Surgical History History of lumpectomy of right breast (07/16/22) History of loop electrical excision procedure (LEEP) Hx of abdominoplasty Hx of breast augmentation (2016) Hx of appendectomy Family History Maternal Grandmother Diabetes HTN (hypertension) Social History Household Members Other:: son (minor child) Are you a primary manager of care to a significant other at home: Yes Do you presently have visiting nurse or other home services: No Alcohol intake: never Patient Tobacco Use Status: Never used Tobacco Sexual orientation: Straight/Heterosexual Gender identity: Female Female Reproductive History Menstrual Age of Menarche: 15 control method: copper IUCD Total pregnancies: 3 Number of Living Children: 1 Ab induced: 1 Ab spontaneous: 1 Date of last pap smear: 01/21/23 Review of Systems Const All systems reviewed & are unremarkable except as noted in HPI and below Card Reports as per HPI Resp Reports as per HPI GI Reports as per HPI and Reports no additional complaints Reports as per HPI Physical Exam Vital Signs: Last Vital Signs BP 112/64 01/27/24 13:59 BMI result Body Mass Index 28.3 Const General: cooperative, healthy appearing and comfortable Chest Chest palpation & inspection: normal inspection of the chest and normal pa lpation of entire chest wall Breast/axilla inspection: normal inspection of the breasts and normal inspection of the axillae Breast/axilla palpation: normal palpation of the breasts, normal palpation of the axillae and no axillary lymphadenopathy Resp Effort & Inspection: normal respiratory effort Auscultation: clear to auscultation bilaterally Percussion: percussion normal Cardio Palpation: normal PMI Rate: regular rate Rhythm: regular rhythm Heart sounds: no murmurs and no rubs Peripheral pulses: Peripheral pulses 2+ throughout GI Inspection: Yes normal to inspection Palpation (GI): Soft to palpation, nontender, no guarding, not rigid and No hepatosplenomegaly present Percussion: Yes normal to percussion Auscultation: normal bowel sounds Rectal Exam - Female: deferred General: Yes bladder normal to palpation External Female Exam: No lesion Speculum Exam - Vagina: normal appearance of the vagina, normal palpation, normal vaginal discharge and not erythematous Speculum Exam - Cervix: normal appearance of the cervix and normal palpation Bimanual exam- vagina & uterus: normal bimanual exam, normal palpation, uterine size normal, bladder normal to palpation, consistency normal and normal palpation Bimanual Exam- Adnexa, other: normal adnexae, no masses and no tenderness Assessment & Plan Assessment & Plan (1) Well woman exam: Comment: TOMASA I since 2019 status post LEEP cone with post cone ECC in 12/03 Code(s): Z01.419 - Encounter for gynecological examination (general) (routine) without abnormal findings Plan: Cotesting not indicated this year. Counseled the patient about the recommended dietary allowance of 1000 mg of Calcium & 600 IU of vitamin D. The patient was instructed to perform monthly self-breast exams and to schedule an annual exam in a year; All questions answered and the patient verbalized understanding. Instructed the patient to schedule annual exam in a year Coding Level of Care Code Est Pt Prev Care 18-39y(73597) Diagnoses Well woman exam Z01.419
[2024-01-27 13:59] VITALS: BP 112/64; BMI 28.3
== END 2024-01-27 15:14 | disposition home or self-care (01) ==
PROVIDERS: PCP Internal Medicine; Visit Provider Obstetrics & Gynecology
DX: Z01.419 Encounter for gynecological examination (general) (routine) without abnormal findings (principal)
CPT/HCPCS: 99395

== ENCOUNTER → 2024-01-27 13:50 | Outpatient (BNVA) | payer OTHER, SELFPAY | PROVIDERS: Visit Provider Obstetrics & Gynecology ==

== ENCOUNTER 2024-03-03 10:18 | Outpatient (REF) | payer OTHER, SELFPAY ==
[2024-03-03 14:34] LABS: Hematocrit 40.6 % (37.0-47.0); Hemoglobin 13.3 g/dl (12.0-16.0)
[2024-03-03 14:57] LABS: Estimated Average Glucose 105 mg/dL; Hemoglobin A1c % 5.3 % (<6.0)
== END 2024-03-03 10:19 | disposition home or self-care (01) ==
LOC: HO.CHCLDS 10:18
PROVIDERS: Visit Provider Internal Medicine
DX: Z01.818 Encounter for other preprocedural examination (principal)
CPT/HCPCS: 36415; 83036; 85014; 85018

== ENCOUNTER 2024-11-01 08:24 | Outpatient (REF) | payer SELFPAY ==
[2024-11-01 14:49] LABS: MANUAL DIFF FLAG NO
[2024-11-01 14:56] LABS: Basophils Absolute Auto 0.1 X10*3/uL (0.0-0.2); Basophils Percent Auto 0.6 % (0-2); Eosinophils Absolute Auto 0.1 X10*3/uL (0.0-0.4); Eosinophils Percent Auto 1.4 % (0-4); Hematocrit 43.8 % (37.0-47.0); Imm Gran Abs Auto 0.04 X10*3/uL (0.00-0.03); Imm Gran Pct Auto 0.4 % (0.0-0.4); Lymphocytes Absolute Auto 1.9 X10*3/uL (1.2-4.9); Lymphocytes Percent Auto 19.3 % (20-40); Mean Corpuscular Hemoglobin 29.5 pg (27.0-33.0); Mean Corpuscular Volume 92.4 fL (80.0-98.0); Mean Platelet Volume 11.9 fL (9.4-12.3); Monocytes Absolute Auto 0.7 X10*3/uL (0.1-1.2); Monocytes Percent Auto 6.9 % (2-11); Neutrophils Absolute Auto 7.1 x10*3/uL (2.0-8.3); Neutrophils Percent Auto 71.4 % (45-73); Platelet Count 240 X10*3/uL (160-400); Red Blood Count 4.74 X10*6/uL (4.20-5.50); Red Cell Distribution Width 13.2 % (11.0-16.0)
[2024-11-01 15:10] LABS: Alanine Aminotransferase 26 U/L (0-31); Albumin Level 4.3 g/dL (3.5-5.0); Alkaline Phosphatase 69 U/L (39-117); Anion Gap 9 (12-20); Aspartate Amino Transferase 22 U/L (5-31); Bilirubin Total 0.6 mg/dL (0.0-1.0); Blood Urea Nitrogen 12 mg/dL (9-16); Calcium 9.6 mg/dL (8.4-10.2); Carbon Dioxide 29 mmol/L (22-29); Chloride 104 mmol/L (96-108); Cholesterol 207 mg/dL (<200); Estimated Glomerular Filt Rate > 60; Glucose Random 83 mg/dL (60-115); HDL Cholesterol 50 mg/dL (>40); LDL Cholesterol Calculated 135 mg/dL (<100); Potassium 4.4 mmol/L (3.3-5.1); Sodium 138 mmol/L (135-145); Total Protein 8.4 g/dL (6.5-8.0); Triglycerides 112 mg/dL (<150)
[2024-11-01 15:29] LABS: TSH reflex Free T4 1.17 uIU/mL (0.32-4.0)
[2024-11-02 08:20] LABS: Syphilis Screen Nonreactive (Nonreactive)
[2024-11-02 08:24] LABS: HIV AB/AG Nonreactive (Nonreactive); HIV Num 1 0.05 S/CO (0.00-0.99); ~HepC Num1 0.11 S/CO (0.00-0.79); ~Hepatitis C Antibody Nonreactive (Nonreactive)
== END 2024-11-01 08:25 | disposition home or self-care (01) ==
LOC: HO.CHCLDS 08:24
PROVIDERS: Visit Provider Internal Medicine
DX: Z00.00 Encounter for general adult medical examination without abnormal findings (principal); E66.3 Overweight; Z11.3 Encounter for screening for infections with a predominantly sexual mode of transmission
CPT/HCPCS: 36415; 80053; 80061; 84443; 85025; 86780; 86803; 87389

== ENCOUNTER 2025-04-11 13:32 | Outpatient (AMB) | payer MEDICAID, SELFPAY ==
--- NOTE | 2025-04-11 13:34 | A.OFFVIS_ITS ---
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 No complaints. Has Mirena IUD since 03/03. Last Pap/HPV was negative in 02/01, this was preceded by TOMASA 1 persistent since 2018 status post LEEP cone with post cone ECC in 2021 [facility] Medical History Scoliosis COVID-19 vaccine series completed TOMASA I (cervical intraepithelial neoplasia I) History of asthma Surgical History History of lumpectomy of right breast (07/16/22) History of loop electrical excision procedure (LEEP) Hx of abdominoplasty Hx of breast augmentation (2016) Hx of appendectomy Family History Maternal Grandmother Diabetes HTN (hypertension) Social History Household Members Other:: son (minor child) Are you a primary caregivers non medical to a significant other at home: Yes Do you presently have visiting nurse or other home services: No Alcohol intake: never Patient Tobacco Use Status: Never used Tobacco Patient : No Sexual orientation: Straight/Heterosexual Gender identity: Female Female Reproductive History Menstrual Age of Menarche: 15 control method: other (Paraguard ) Total pregnancies: 3 Full term: 1 Date of last pap smear: 01/21/23 (negative pap smear, negative hpv ) History of abnormal pap smear: Yes Review of Systems Const All systems reviewed & are unremarkable except as noted in HPI and below Card Reports as per HPI Resp Reports as per HPI GI Reports as per HPI and Reports no additional complaints Reports as per HPI Physical Exam Vital Signs: Last Vital Signs BP 120/68 04/11/25 13:42 BMI result Body Mass Index 27.6 Const General: cooperative, healthy appearing and comfortable Chest Chest palpation & inspection: normal inspection of the chest and normal palpation of entire chest wall Breast/axilla inspection: normal inspection of the breasts and normal inspection of the axillae Breast/axilla palpation: normal palpation of the breasts, normal palpation of the axillae and no axillary lymphadenopathy Resp Effort & Inspection: normal respiratory effort Auscultation: clear to auscultation bilaterally Percussion: percussion normal Cardio Palpation: normal PMI Rate: regular rate Rhythm: regular rhythm Heart sounds: no murmurs and no rubs Peripheral pulses: Peripheral pulses 2+ throughout GI Inspection: Yes normal to inspection Palpation (GI): Soft to palpation, nontender, no guarding, not rigid and No hepatosplenomegaly present Percussion: Yes normal to percussion Auscultation: normal bowel sounds Rectal Exam - Female: deferred General: Yes bladder normal to palpation External Female Exam: No lesion Speculum Exam - Vagina: normal appearance of the vagina, normal palpation, normal vaginal discharge and not erythematous Speculum Exam - Cervix: normal appearance of the cervix, normal palpation and Other cervical findings present (IUD thread in place) Bimanual exam- vagina & uterus: normal bimanual exam, normal palpation, uterine size normal, bladder normal to palpation, consistency normal and normal palpation Bimanual Exam- Adnexa, other: normal adnexae, no masses and no tenderness Assessment & Plan Assessment & Plan (1) Well woman exam: Comment: TOMASA I since 2019 status post LEEP cone with post cone ECC in 12/03 Co testing in 02/01 negative Code(s): Z01.419 - Encounter for gynecological examination (general) (routine) without abnormal findings Category: Medical Plan: Cotesting not indicated this year, recommended co testing in a year but patient requested repeat co testing this year, co testing done. 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 The patient was instructed to perform monthly self-breast exams and to schedule an annual exam in a year; All questions answered and the patient verbalized understanding. Instructed the patient to schedule Mirena removal/ParaGard IUD insertion and an annual exam in a year (2) TOMASA I (cervical intraepithelial neoplasia I): Comment: 12/03 Persistent since 2018 status post LEEP cone with post cone ECC 02/01 co testing negative Code(s): N87.0 - Mild cervical dysplasia Category: Medical Plan: Co testing done Orders: Orders Pap Smear Today N87.0 - Mild cervical dysplasia HPV High risk Today N87.0 - Mild cervical dysplasia Coding Level of Care Code Est Pt Prev Care 18-39y(69892) Diagnoses Well woman exam Z01.419 TOMASA I (cervical intraepithelial neoplasia I) N87.0
[2025-04-11 13:42] VITALS: BP 120/68; BMI 27.6
--- OUTSIDE RECORDS SUMMARY | 2025-04-11 14:42 | XMS_ITS | Clinical Summary ---
Author Organization [facility] ity Address [address] [place] [address] Care Team Providers Care Rechecker Name Role Phone Dominick Nielsen MD Primary Care Provider [phone] Surgical History Surgery Date Site/Laterality Comments APPENDECTOMY PROCEDURE: HISTORICAL APPENDECTOMY Medical History Medical History Date Comments Historical Medical DX 02/19/2015 DX:NO ACTI VE MEDICAL PROBLEMS Family History Medical History Relation Name Comments Other: alive and well Father Diabetes Grandparent Hypertension Mother Blindness Neg Hx Cataracts Neg Hx Glaucoma Neg Hx Macular degeneration Neg Hx Strabismus Neg Hx Relation Name Status Comments Father Grandparent Mother Social History Tobacco Use Types Packs/Day Years Used Date Smoking Tobacco: Never Alcohol Use Standard Drinks/Week Comments No 0 (1 standard drink = 0.6 oz pur e alcohol) Comments Unknown Sex and Gender Information Value Date Recorded Sex Assigned at Not on file Legal Sex Female 12:02 PM EST Gender Identity Not on file Sexual Orientation Not on file Obstetrics History Plan of Treatment Health Maintenance Due Date Last Done Comments Cervical Cancer Screening: P ap Smear 2008 Depression Screening 09/09/2022 HIV Screening 09/09/2022 Hepatitis C Screening 09/09/2022 Social Influencers of Health Screening 09/09/2022 COVID-19 Vaccine ( - 2023-2 5 season) 2024 Influenza Vaccine (#1) 2025 DTaP,Tdap,and Td Vaccines (2 - Td or Tdap) 06/14/2025 06/14/2015 Hepatitis B Vaccines Completed 12/27/2015, 07/13/2015, 06/14/2015 HIB Vaccines Aged Out No longer eligi ble based on patient's age to complete this topic HPV Vaccines Aged Out No longer eligi ble based on patient's age to complete this topic Hepatitis A Vaccines Aged Out No long er eligible based on patient's age to complete this topic IPV Vaccines Aged Out No longer eligi ble based on patient's age to complete this topic MMR Vaccines Aged Out No longer eligi ble based on patient's age to complete this topic Meningococcal ACWY Vaccine Aged Out N o longer eligible based on patient's age to complete this topic Meningococcal B Vaccine Aged Out No l onger eligible based on patient's age to complete this topic Pneumococcal Vaccine: Pediatrics (0 to 5 Years) and At-Risk Patients (6 to 64 Years) Aged Out No longer eligible b ased on patient's age to complete this topic RSV Immunization Patients Under 20 months Aged Out No longer eligible b ased on patient's age to complete this topic Varicella Vaccines Aged Out No longer eligible based on patient's age to complete this topic Care Teams Rechecker Relationship Specialty Start Date End Date Dominick Nielsen MD [address] [place] [address] PCP - General Internal Medicine 06/24/22
--- OUTSIDE RECORDS SUMMARY | 2025-04-11 14:42 | XMS_ITS | Encounter Summary ---
Author Organization [employer] Address [address] [facility] [address] [place] [address] Care Team Providers Care Director Of Primary Name Role Phone Dominick Nielsen MD Primary Care Provider [phone] Reason for Visit * Reason Onset Date Comments Nurse Triage 07/11/2024 Encounter Details Date Type Department Care Team (Late st Contact Info) Description 07/11/2024 Telephone [facility] [address] [place] [address] Dominick Nielsen MD [address] [place] [address] Nurse Triage Social History Tobacco Use Types Packs/Day Years Used Date Smoking Tobacco: Never Passive Smoke Exposure: Never Smokeless Tobacco: Never Alcohol Use Standard Drinks/Week Comments Never 0 (1 standard drink = 0.6 oz pur e alcohol) Depression Answer Date Recorded Patient Health Questionnaire-9 Score 11 09/22/2023 Patient Health Questionnaire-9 Score 11 09/22/2023 Last PHQ-9: Questionnaire Data Not on file 1 11/23/2022 Housing Stability Answer Date Recorded What is your housing situation today? I have kalyani munson 08/05/[address] you li ve. Do you have problems with any of the following? None of the above 08/05/2023 Food Insecurity Answer Date Recorded Within the past 12 months, y ou worried that your food would run out before you got money to buy more: Never True 08/05/2023 Within the past 12 months,th e food you bought just didn't last and you didn't have enough money to get more: Never True Transportation Answer Date Recorded In the past 12 months, has l ack of transportation kept you from medical appts, meetings, work or from getting things needed for daily living? No 08/05/2023 Utilities Answer Date Recorded In the past 12 months, has t he electric, gas, oil or water company threatened to shut off services in your home? No 08/05/2023 Depression Answer Date Recorded Patient Health Questionnaire-2 Score 2 09/22/2023 Comments No Sex and Gender Information Value Date Recorded Sex Assigned at Female 08/11/2022 10:29 AM EDT Legal Sex Female 10:29 AM EDT Gender Identity Female 08/11/2022 10:29 AM EDT Sexual Orientation Straight 08/11/2022 10 :29 AM EDT documented as of this encounter Miscellaneous Notes * Telephone Encounter - Stephanie Jj LPN - 07/11/2024 3:36 PM EDT Triage call returned with ditlo Academic Coordinator [id number]. Patient with HSN as verified with Darian. Patient had bilateral breast implants removed in April in the [place]. Patient with ongoing non healing area in the lower central portion of left breast. Previous MD gave her powder to apply andwound has not closed. Area is at times red and tender to touch. No foul drainage reported and no fever. Disposition reviewed and no PCP or Team appts available to book at time of call. Team tasked tofkenyaow with appt. Patient provided [facility] hours and availability as well at time of call. Multiple (2) protocols were used on this call. Disposition for Call: See in Office or Video Visit Today or Tomorrow Protocol Used: Wound Infection Suspected (Adult) Protocol-Based Disposition: See in Office or Video Visit Today or Tomorrow Video visit not offered Positive Triage Question: * Wound infection suspected by triager (e.g., other signs of wound infection) * All higher-acuity triage questions were negative Protocol Used: Post-Op Incision Symptoms and Questions (Adult) Care Advice Discussed: * Follow Your Surgeon's Instructions * Cleaning the Incision * Reasons To Call Back - Incision looks infected (such as increasing redness, tenderness, pus-like drainage) - Incision edges start to gape open - Fever occurs - You become worse * Telephone Encounter - Gregor Ty - 07/11/2024 3:17 PM EDT Symptom: Breast Symptoms after implant removal Outcome: Schedule an appointment to be seen within 24 hours Reason: Caller denied all higher acuity questions The caller accepted this outcome. Patient speaks [place] islander documented in this encounter Plan of Treatment Not on file documented as of this encounter Visit Diagnoses Not on filedocumented in this encounter Additional Health Concerns Assessment Noted Time PHQ-9 Depression Total Score: 11 023 2:48 PM EST documented as of this encounter Care Teams Director Of Primary Relationship Specialty Start Date End Date Dominick Nielsen MD [address] [place] [id number] PCP - General Internal Medicine 02/07/16 documented as of this encounter
== END 2025-04-11 14:05 | disposition home or self-care (01) ==
LOC: HO.HWS 13:32
PROVIDERS: PCP Internal Medicine; Visit Provider Obstetrics & Gynecology
DX: Z01.419 Encounter for gynecological examination (general) (routine) without abnormal findings (principal); N87.0 Mild cervical dysplasia
CPT/HCPCS: 99395; 99459

== ENCOUNTER 2025-04-11 13:32 | Outpatient (REF) | payer MEDICAID, SELFPAY | END 2025-04-11 13:33 | disposition home or self-care (01) | LOC: HO.LNP 13:32 | PROVIDERS: PCP Internal Medicine; Visit Provider Obstetrics & Gynecology | DX: Z01.419 Encounter for gynecological examination (general) (routine) without abnormal findings (principal); N87.0 Mild cervical dysplasia | CPT/HCPCS: 87626; 88175; 99395 ==

== ENCOUNTER 2025-07-12 12:09 | Outpatient (REF) | payer MEDICAID, SELFPAY ==
--- OUTSIDE RECORDS SUMMARY | 2025-07-12 14:49 | XMS_ITS | Encounter Summary ---
Author Organization [facility] Address [facility] [place] [address] Care Team Providers Care Tool Turret Lathe Set Up Operator Name Role Phone Anil Boyd MD Primary Care Provide r Unavailable Encounter Details Date Type Department Care Team Description 07/26/2016 Release of Information Medical Records [address] [place] [address] Abstract, Provider Social History Tobacco Use Types Packs/Day Years Used Date Smoking Tobacco: Never Alcohol Use Standard Drinks/Week Comments No 0 (1 standard drink = 0.6 oz pur e alcohol) Sex Assigned at Date Recorded Not on file documented as of this encounter Plan of Treatment Not on file documented as of this encounter Visit Diagnoses Not on filedocumented in this encounter Care Teams Tool Turret Lathe Set Up Operator Relationship Specialty Start Date End Date Anil Boyd MD PCP - General Internal Medicine 12/27/18 documented as of this encounter
--- OUTSIDE RECORDS SUMMARY | 2025-07-12 14:49 | XMS_ITS | Clinical Summary ---
Author Organization [facility] Address [address] [place] [address] Care Team Providers Care Conference Specialist Name Role Phone Anil Boyd MD Primary Care Provide r Unavailable Allergies Active Allergy Reactions Severity Noted Date Comments Aspirin 02/19/2015 Medications No known medications Active Problems Problem Noted Date NO ACTIVE MEDICAL PROBLEMS 02/19/2015 Immunizations Name Administration Dates Next Due Hepatitis B > 19yrs 12/27/2015,07/13/2015,2014 Qnqcpzd-Xadvu-Osojclpo + 06/01/2015 Rlmhn-Atnsq-Qofuwakz + 06/01/2015 PPD-RBMG 07/03/2015 Ssipxhk-Ubyis-Wniqjbab + 06/01/2015 Tdap 06/14/2015 Varicella Titre-Positive + 06/01/2015 Family History Medical History Relation Name Comments alive and well[other] Father Diabetes Grandparent Hypertension Mother Blindness Negative Hx Cataract Negative Hx Glaucoma Negative Hx Macular Degeneration Negative Hx Strabismus Negative Hx Relation Name Status Comments Father Grandparent Mother Social History Tobacco Use Types Packs/Day Years Used Date Smoking Tobacco: Never Alcohol Use Standard Drinks/Week Comments No 0 (1 standard drink = 0.6 oz pur e alcohol) Sex Assigned at Date Recorded Not on file Last Filed Vital Signs Vital Sign Reading Time Taken Comments Blood Pressure 102/68 02/19/2015 8:37 AM EDT Pulse 80 02/19/2015 8:37 AM EDT Temperature - - Respiratory Rate - - Oxygen Saturation - - Inhaled Oxygen Concentration - - Weight 58.9 kg (129 lb 12.8 oz) 02/19/2015 8:37 AM EDT Height 152.4 cm (5') 02/19/2015 8:37 AM EDT Body Mass Index 25.35 02/19/2015 8:37 AM EDT Plan of Treatment Health Maintenance Due Date Last Done Comments Covid-19 Vaccine (#1) 05/21/1988 TOBACCO CHECK/ADVISE 2005 CERVICAL CANCER SCREENING 2008 BASELINE HEALTH EXAM 18-39 02/20/2020 02/19/2015 CHOLESTEROL SCREENING 06/01/2020 06/01/2015 BMI CHECK/ADVISE 10/12/2024 02/19/2015 INFLUENZA (#1) 2025 DTAP/TDAP/TD (2 - Td or Tdap) 06/14/2025 06/14/2015 PNEUMOCOCCAL VACCINE FOR HIGH RISK PATIENTS (#1) 11/21 Care Teams Conference Specialist Relationship Specialty Start Date End Date Anil Boyd MD PCP - General Internal Medicine 12/27/18
[2025-07-13 06:14] LABS: CT PCR NOT DETECTED (Not Detect.); NG PCR NOT DETECTED (Not Detect.)
== END 2025-07-12 12:10 | disposition home or self-care (01) ==
LOC: HO.LNP 12:09
PROVIDERS: PCP Internal Medicine; Visit Provider Obstetrics & Gynecology
DX: Z11.3 Encounter for screening for infections with a predominantly sexual mode of transmission (principal); Z20.2 Contact with and (suspected) exposure to infections with a predominantly sexual mode of transmission; R10.20 Pelvic and perineal pain unspecified side; R31.29 Other microscopic hematuria; Z32.02 Encounter for pregnancy test, result negative
CPT/HCPCS: 81002; 81025; 87086; 87491; 87591; 99212

== ENCOUNTER 2025-07-12 12:09 | Outpatient (AMB) | payer MEDICAID, SELFPAY ==
--- NOTE | 2025-07-12 12:26 | A.OFFVIS_ITS ---
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 The patient would like to keep Mirena IUD instead of switching it to ParaGard Complaining of left-sided pelvic pain associated with urinary frequency no vaginal discharge no nausea and vomiting no other GI or symptoms [facility] Medical History Scoliosis COVID-19 vaccine series completed TOMASA I (cervical intraepithelial neoplasia I) History of asthma Surgical History History of lumpectomy of right breast (07/16/22) History of loop electrical excision procedure (LEEP) Hx of abdominoplasty Hx of breast augmentation (2016) Hx of appendectomy Family History Maternal Grandmother Diabetes HTN (hypertension) Social History Household Members Other:: son (minor child) Are you a primary transitional care manager to a significant other at home: Yes Do you presently have visiting nurse or other home services: No Alcohol intake: never Patient Tobacco Use Status: Never used Tobacco Sexual orientation: Straight/Heterosexual Gender identity: Female Female Reproductive History Menstrual Age of Menarche: 15 Review of Systems Const All systems reviewed & are unremarkable except as noted in HPI and below Physical Exam Vital Signs: BMI result Body Mass Index 27.6 General: Yes no CVA tenderness External Female Exam: normal external appearance and normal appearance of the urethra Speculum Exam - Vagina: normal appearance of the vagina, normal palpation, no lesions and no masses Speculum Exam - Cervix: normal appearance of the cervix, normal palpation, no lesions, no masses and nontender Bimanual exam- vagina & uterus: normal bimanual exam, normal palpation, uterine size normal, normal palpation, uterine shape normal, No Cervical tenderness present and non-tender Bimanual Exam- Adnexa, other: normal adnexae Back/Spine/Pelvis Back: no CVA tenderness Assessment & Plan Assessment & Plan (1) Pelvic pain: Code(s): R10.2 - Pelvic and perineal pain Category: Medical Plan: Urine dip and test done in the office was negative. GC and chlamydia taken and pelvic ultrasound ordered. Discussed with the patient the differential diagnosis of pelvic pain including but not limited to adnexal, uterine masses, pelvic infections (PID), GI the (Irritable bowel syndrome, diverticulitis, others), musculoskeletal, myofascial pain abdominal wall , adhesions, endometriosis, psychological and others causes. Will check results and treat accordingly. All questions answered, the patient verbalized understanding. Instructed the patient to schedule an ultrasound and a follow-up appointment in 2 weeks. All questions answered, the patient verbalized understanding and agreed with the plan. (2) Microscopic hematuria: Code(s): R31.29 - Other microscopic hematuria Category: Medical Plan: Urine dip showed microscopic hematuria, urine culture sent. Will repeat urine dip in 2 weeks. Discussed with the patient the possible causes of microscopic hematuria including but not limited to: interstitial cystitis, polyps, stones, masses, urethral inflammatory processes and others. If Urine Culture is negative and repeat urine dip in 2 weeks shows persistent microscopic hematuria, will proceed with CT abdomen/pelvis and urology referral. Instructions given the patient to schedule a 2 week urine dip follow-up appointment. All questions answered and the patient verbalized understanding. Orders: Orders US pelvic and transvaginal Today R10.2 - Pelvic and perineal pain Coding Level of Care Code Est Pt Level 3 (37500) Diagnoses Pelvic pain R10.2 Microscopic hematuria R31.29
[2025-07-12 12:33] VITALS: BMI 27.6
--- OUTSIDE RECORDS SUMMARY | 2025-07-12 13:41 | XMS_ITS | Encounter Summary ---
Author Organization [employer] Address [address] [facility] [address] [place] [address] Care Team Providers Care Meat Boner Name Role Phone Dominick Nielsen MD Primary Care Provider [phone] Encounter Details Date Type Department Care Team (Late st Contact Info) Description 07/07/2023 Orders Only [facility] [address] [place] [address] Suzan Mckinley Social History Tobacco Use Types Packs/Day Years Used Date Smoking Tobacco: Never Passive Smoke Exposure: Never Smokeless Tobacco: Never Alcohol Use Standard Drinks/Week Comments Never 0 (1 standard drink = 0.6 oz pur e alcohol) Depression Answer Date Recorded Patient Health Questionnaire-9 Score 14 01/06/2023 Depression Answer Date Recorded Patient Health Questionnaire-2 Score 4 01/06/2023 Comments No Sex and Gender Information Value Date Recorded Sex Assigned at Female 08/11/2022 10:29 AM EDT Legal Sex Female 10:29 AM EDT Gender Identity Female 08/11/2022 10:29 AM EDT Sexual Orientation Straight 08/11/2022 10 :29 AM EDT documented as of this encounter Plan of Treatment Not on file documented as of this encounter Procedures Procedure Name Priority Date/Time Associated Diagnosis Comments BIOPSY CERVIX Routine 11/28/2021 12:00 AM EST COLPOSCOPY Routine 10/31/2021 12:00 AM EST documented in this encounter Results * Biopsy cervix (11/28/2021 12:00 AM EST) Historical Provider MD IN CLINIC/BEDSIDE ORDERAB LES Final Result * Colposcopy (10/31/2021 12:00 AM EST) Historical Provider MD IN CLINIC/BEDSIDE ORDERAB LES Final Result documented in this encounter Visit Diagnoses Not on filedocumented in this encounter Additional Health Concerns Assessment Noted Time PHQ-9 Depression Total Score: 14 023 8:45 AM EDT documented as of this encounter Care Teams Meat Boner Relationship Specialty Start Date End Date Dominick Nielsen MD [address] [place] [address] PCP - General Internal Medicine 02/07/16 documented as of this encounter
--- OUTSIDE RECORDS SUMMARY | 2025-07-12 13:41 | XMS_ITS | Clinical Summary ---
Author Organization [facility] Address [address] [place] [address] Care Team Providers Care Lpn Private Duty Name Role Phone Dominick Nielsen MD Primary Care Provider [phone] Surgical History Surgery Date Site/Laterality Comments APPENDECTOMY [...] Cervical Cancer Screening: P ap Smear 2008 HPV Vaccines (1 - 3-dose SCD M series) 2014 HIV Screening 09/09/2022 Hepatitis C Screening 09/09/2022 Social Influencers of Health Screening 09/09/2022 Depression Screening 10/12/2024 COVID-19 Vaccine ( - 2023-2 5 season) 2025 Influenza Vaccine (#1) 2025 DTaP,Tdap,and Td Vaccines (2 - Td or Tdap) 06/14/2025 06/14/2015 RSV Immunization Adult Patients (1 - 1-dose 75+ series) 2062 Hepatitis B Vaccines Completed 12/27/2015, 07/13/2015, 06/14/2015 [...] 5 Years) and At-Risk Patients (6 to 49 Years) Aged Out No longer eligible b ased on patient's age to complete this topic RSV Immunization Patients Under 20 months Aged Out No longer eligible b ased on patient's age to complete this topic Varicella Vaccines Aged Out No longer eligible based on patient's age to complete this topic Care Teams Lpn Private Duty Relationship Specialty Start Date End Date Dominick Nielsen MD [address] [place] [address] PCP - General Internal Medicine 06/24/22
--- OUTSIDE RECORDS SUMMARY | 2025-07-12 13:41 | XMS_ITS | Encounter Summary ---
Author Organization [employer] [facility] Address [address] [facility] 7[address] [place] [address] Care Team Providers Care Radiologic Technology Instructor Name Role Phone Dominick Nielsen MD Primary Care Provider [phone] Encounter Details Date Type Department Care Team (Late st Contact Info) Description 07/07/2023 Orders Only [facility] [address] [place] [address] Provider, Lev, Social History Tobacco Use Types Packs/Day Years [...] Procedure Name Priority Date/Time Associated Diagnosis Comments HM PAP/HPV Routine 08/29/2021 documented in this encounter Results * Hm Pap Smear (08/29/2021) Historical Provider HEALTH MAINTENANCE Final Result documented in this encounter Visit Diagnoses Not on filedocumented in this encounter Additional Health Concerns Assessment Noted Time PHQ-9 Depression Total Score: 14 01/06/ 023 8:45 AM EDT documented as of this encounter Care Teams Radiologic Technology Instructor Relationship Specialty Start Date End Date Dominick Nielsen MD [address] [place] [id number] PCP - General Internal Medicine 02/07/16 documented as of this encounter
--- OUTSIDE RECORDS SUMMARY | 2025-07-12 13:41 | XMS_ITS | Encounter Summary ---
Author Organization [employer] Address [address] [facility] [address] [place] [address] Care Team Providers Care Communications Department Chair Name Role Phone Dominick Nielsen MD Primary Care Provider [phone] Encounter Details Date Type Department Care Team (Late st Contact Info) Description 05/22/2023 Orders Only [facility] [address] [place] [address] Dominick Nielsen MD [address] [place] [address] Social History Tobacco Use Types Packs/Day Years [...] documented as of this encounter Care Teams Communications Department Chair Relationship Specialty Start Date End Date Dominick Nielsen MD [address] [place] [address] PCP - General Internal Medicine 02/07/16 documented as of this encounter
--- OUTSIDE RECORDS SUMMARY | 2025-07-12 13:41 | XMS_ITS | Clinical Summary ---
Author Organization [employer] [facility] [employer] Address [address] [facility] [address] [place] [address] Care Team Providers Care Advisory Internship Name Role Phone Dominick Nielsen MD Primary Care Provider [phone] Allergies Active Allergy Reactions Criticality Noted Date Comments Aspirin Unknown Low 05/12/2016 Red rash Medications copper (Paragard) IUD 3 Active fluticasone-jacklyn meterol (AirDuo RespiClick 232/14) 232-14 MCG/ACT inhaler inhale 1 puff by inhalation route 2 times every day approximately 12 hours apart at the same time each day 9 Active albuterol (ProAir HFA) 108 (90 Base) MCG/ACT inhaler Inhale 2 puffs. 8 Active Elastic Bandages & Supports (Anti-Embolism Stockings Medium) misc 10/15 mm/Hg. Knee high. 1 each 3 Active Minoxidil 5 % foam To use daily 60 g 3 3 Active DULoxetine (Cymbalta) [address] capsule Take 1 capsule (20 mg) by mouth 2 times daily. Do not crush or chew. 60 capsule 11 5 026 Active omeprazole (PriLOSEC) [address] capsuleIndicati ons:Gastroesoph ageal reflux disease without esophagitis Take 1 capsule (20 mg) by mouth in the morning. 30 capsule 3 5 Active Active Problems Problem Noted Date Diagnosed Date Hypercholesterolemia 02/02/2025 Anxiety 10/28/2024 Urinary tract infection without hematuria 2022 Assessment & Plan (09/10/2023 3:37 PM EST): Patient that presented visit with complaints of UTI will be prescribed Macrobid to treat concern. Urinalysis was obtained at the time of visit. Acute vaginitis 07/23/2023 Assessment & Plan (09/10/2023 3:38 PM EST): Patient still presents visit with complaints of acute vaginitis, therefore, will be prescribing Fluconazole and Metronidazole to treat concern. Assessment & Plan (07/23/2023 4:16 PM EDT): -Patient with concerns of acute vaginitis will be prescribed Fluconazole and Metronidazole to treat infection. -Labs: Chl., Gono. RNA, TMA, Urogenitial. Venous insufficiency 03/22/2023 Overview (03/22/2023): Continue w/ leg elevation and the use of the compression stockings pending the vascular surgery evaluation. Epigastric pain 03/22/2023 Overview (03/22/2023): Possible gastritis. Trial of omeprazole. Avoid dietary irritants. Head of bed elevation. 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 Sent tx for fungal infection and refer to dermatology. Asthma 02/07/2016 Scoliosis deformity of spine 02/07/2016 Encounters Date Type Department Care Team Description 04/11/2025 Orders Only GENERIC EXTERNAL DATA DEPARTMENT Provider, Generic External Data from Last 3 Months Immunizations Immunization Administration Dates Next Due Hep B, adult 12/27/2015,07/13/2015,06/14/2015 Influenza injectable quadriv alent preservative free 09/22/2023,07/26/2020 Influenza, IIV3, injectable 10/30/2017, 2 MMR 06/01/2015 PPD Test 07/03/2015 Tdap 06/14/2015 Varicella 06/01/2015 Social History Tobacco Use Types Packs/Day Years Used Date Smoking Tobacco: Never Passive Smoke Exposure: Never Smokeless Tobacco: Never Tobacco Cessation:Counseling Given: Not Answered Alcohol Use Standard Drinks/Week Comments Never 0 (1 standard drink = 0.6 oz pur e alcohol) Depression Answer Date Recorded Patient Health Questionnaire-9 Score 4 10/28/2024 Patient Health Questionnaire-9 Score 4 10/28/2024 Last PHQ-9: Questionnaire Data Not on file 0 10/28/2024 Housing Stability Answer Date Recorded What is your housing situation today? I have kalyani munson 10/28/[address] you li ve. Do you have problems with any of the following? None of the above 10/28/2024 Food Insecurity Answer Date Recorded Within the past 12 months, y ou worried that your food would run out before you got money to buy more: Never True 10/28/2024 Within the past 12 months,th e food you bought just didn't last and you didn't have enough money to get more: Never True Transportation Answer Date Recorded In the past 12 months, has l ack of transportation kept you from medical appts, meetings, work or from getting things needed for daily living? No 10/28/2024 Utilities Answer Date Recorded In the past 12 months, has t he electric, gas, oil or water company threatened to shut off services in your home? No 10/28/2024 Depression Answer Date Recorded Patient Health Questionnaire-2 Score 0 10/28/2024 Internet Access Answer Date Recorded Internet Access Q1 Yes 10/28/2024 Internet Access Q2 Not on file 10/28/2024 Comments No Sex and Gender Information Value Date Recorded Sex Assigned at Female 08/11/2022 10:29 AM EDT Legal Sex Female 10:29 AM EDT Gender Identity Female 08/11/2022 10:29 AM EDT Sexual Orientation Straight 08/11/2022 10 :29 AM EDT Last Filed Vital Signs Vital Sign Reading Time Taken Comments Blood Pressure 115/77 02/02/2025 1:36 PM EDT Pulse 76 02/02/2025 1:36 PM EDT Temperature 36.7 C (98 F) 02/02/2025 1:36 PM EDT Respiratory Rate 20 02/02/2025 1:36 PM EDT Oxygen Saturation 93% 02/02/2025 1:36 PM EDT Inhaled Oxygen Concentration - - Weight 63.5 kg (140 lb) 02/02/2025 1:36 PM EDT Height 157.5 cm (5' 2 ) 02/02/2025 1:36 PM EDT Body Mass Index 25.61 02/02/2025 1:36 PM EDT Plan of Treatment Health Maintenance Due Date Last Done Comments Disability Screening 1985 Family Planning (PISQ) 2002 HPV Vaccines (1 - 3-dose series) 2002 Pneumococcal Vaccine: Pediatrics (0 to 5 Years) and At-Risk Patients (6 to 49) Years (1 of 2 - PCV) 2006 COVID-19 Vaccine (3 - season) 2025 02/27/2021, 02/06/2021 Influenza Vaccine (#1) 2025 , 07/26/2020, 10/30/2017, Additional history exists DTaP/Tdap/Td Vaccines (2 - Td or Tdap) 06/14/2025 06/14/2015 Alcohol/Substance Use Screening 10/28/2025 10/28/2024 Depression Screening 10/28/2025 10/28/2024, 10/28/19 25 SDOH Screening 10/28/2025 10/28/2024 Tobacco Screening 02/02/2026 02/02/2025 Pap Smear 04/11/2028 04/11/2025, 01/10, 08/29/2021 Cervical Cancer Screening 04/11/2030 HPV/Cotest 04/11/2030 04/11/2025, 01/10, 08/29/2021, Additional history exists Zoster Vaccines (1 of 2) 2037 RSV Patients and Patients Aged 60 years or older (1 - 1-dose 75+ series) 2062 Hepatitis B Vaccines Completed 12/27/2015, 07/13/2015, 06/14/2015 HIV Screening Completed 11/01/2024, 04/11, 05/20/2021 Hepatitis C Screening Completed 11/01/2024 , 12/07/2023, 04/22/2022 HIB Vaccines Aged Out No longer eligi [...] patient's age to complete this topic Meningococcal Vaccine Aged Out No issac vane eligible based on patient's age to complete this topic RSV under 20 months Aged Out No longe r eligible based on patient's age to complete this topic Rotavirus Vaccines Aged Out No longer eligible based on patient's age to complete this topic Procedures Procedure Name Priority Date/Time Associated Diagnosis Comments PAP SMEAR Routine 04/11/2025 1:48 PM EDT HPV DNA, LOW/HIGH RISK Routine 04/11/2025 1:48 PM EDT HEPATITIS C AB W/REFL TO HCV RNA, QN, PCR Routine 11/01/2024 8:27 AM EST Routine screening for STI (sexually transmitted infection) HIV 1/2 ANTIGEN/ANTIBODY, FOURTH GENERATION W/RFL Routine 11/01/2024 8:27 AM EST Routine screening for STI (sexually transmitted infection) from Last 3 Months or Most Recently Relevant to Health Maintenance Results * HPV DNA, Low/High Risk (04/11/2025 1:48 PM EDT) HPV High Risk Negative Negative [facility] HPV Genotype 16 Negative Negative [facility] HPV Genotype 18 Negative Negative [facility] Comment:HPV testing performe d at [facility] (CLIA#[id number]), [address] [place] [id number].Testing for HPV was performed using the Chiquita SILVERIO 6800system. The presence of HPV in the female genital tract isassociated with a number of diseases, including cervicalcarcinoma. The HPV DNA high risk pool tests for HPV 31, 33,35, 39, 45, 51, 52, 56, 58, 59, 66 and 68. The testing forHPV 16 and 18 genotypes has also been performed. A positiveresult indicates detection of nucleic acid sequences fromone or more subtypes, whereas a negative result indicatessuch sequences were not detected. 04/11/2025 1:48 PM EDT 04/12/2025 8:25 AM EDT us Generic External Data Provider LAB BLOOD ORDERAB LES Final Result [facility] [address] [place] [phone] * Pap Smear (04/11/2025 1:48 PM EDT) 04/11/2025 1:48 PM EDT 04/12/2025 8:25 AM EDT Narrative [facility] - 04/18/2025 12:31 PM EDT ----- ------- Name: Justin Dillon Age/Sex: 39/F : 1985 [place] Ll[address]#: [id number] Unit#: [id number] Attend Dr: Myron Pham MD Re04/11/25 Status: DEP REF Location: [facility] Disch: ----- ------- SPEC : [id number] RECD: 04/12/25 STATUS: LAURYN VASQUEZ NUM: [id number] SEPIDEH: 04/11/258 [facility] DR: Myron Pham MD ENTERED: 04/12/25 SP TYPE: Pap Smr OT DR: Dominick Nielsen MD ORDERED: Pap Smear Interpretation Satisfactory for evaluation. Negative for intraepithelial lesion or malignancy. No endocervical cells seen. Mild inflammation. HPV High Risk: Negative HPV Genotyping 16: Negative HPV Genotyping 18: Negative Clinical Information LMP: Unknown date Previous PAP test: 01/21/2023, TOMASA 1 Other history: Mild cervical dysplasia Material Received ThinPrep-Cervical PAP Disclaimer As of August 03, 2024, the technical services to include automated prescreening performed by the ThinPrep Imaging System, PAP screening and HPV testing will be performed at [facility] (CLIA #[id number]), [address] [place] [address]. Testing for HPV was performed using the Chiquita SILVERIO 6800 system. The presence of HPV in the female genital tract is associated with a number of diseases, including cervical carcinoma. The HPV DNA high risk pool tests for HPV 31, 33, 35, 39, 45, 51, 52, 56, 58, 59, 66 and 68. The testing for HPV 16 and 18 genotypes has also been performed. A positive result indicates detection of nucleic acid sequences from one or more subtypes, whereas a negative result indicates such sequences were not detected. All professional services are performed by [facility] ([address] [place] [address], [place] [address]; ; CLIA #[id number]). The PAP Test is a screening procedure with the inherent possibility of both false negative and false positive results. Results should be interpreted in the context of historic and current clinical findings. Reliability of the PAP Test is enhanced by performing the test on a regular repetitive basis. CONTINUED ON NEXT PAGE ----- ------- Name: Justin Dillon Age/Sex: 39/F : 1985 Unit#: [id number] Attend Dr: Myron Pham MD Re04/11/25 Status: DEP REF Location: [facility] Disch: ----- ------- SPEC : [id number] RECD: 04/12/25 STATUS: LAURYN VASQUEZ NUM: [id number] SEPIDEH: 04/11/25 [facility] DR: Myron Pham MD ENTERED: 04/12/25 SP TYPE: Pap Smr OTHR DR: Dominick Nielsen MD ORDERED: Pap Smear Copies To: Dominick Nielsen MD [address] [id number] Myron Pham MD [facility] [address] [place] [address] [address] [place] [phone] ----- ------- Signed (signature on file) Ousmane TRISTAN Fang ([facility]) 04/18/25 1231 ----- ------- END OF REPORT us Generic External Data Provider LAB CYTOLOGY ALBAE RABMILVIA Final Result Performing Organization Address [facility]/ZIP Co de Phone Number [facility] [address] [place] [phone] * Hepatitis C Antibody with Reflex to HCV, RNA, Quantitative, Real-Time PCR (11/01/2024 8:27 AM EST) Hepatitis C Antibody Nonreactive Nonreactive [facility] Comment:Antibodies to HCV no t detected; does not exclude early acuteHCV infection. Blood Venous blood specimen / Unknown 11/01/2024 8:27 AM EST 11/01/2024 2:45 PM EST us Dominick Nielsen MD LAB BLOOD ORDERABLES Final Result Performing Organization Address [facility] Co de Phone Number [facility] [address] [place] [phone] * HIV-1/2 Antigen and Antibodies, Fourth Generation, with Reflexes (11/01/2024 8:27 AM EST) HIV AB/AG Nonreactive Nonreactive [facility] Comment:HIV-1 p24 Ag and/or HIV-1/HIV-2 Ab not detected.A test result that is nonreactive does not exclude thepossibility of exposure to or infection with HIV-1 and/orHIV-2. Nonreactive results in this assay for individualswith prior exposure to HIV-1 and/or HIV-2 may be due toantigen and antibody levels that are below the limit ofdetection of this assay.The Telestreamnity HIV Ag/Ab Combo assay result andsupplemental assay results should be interpreted inconjunction with the patient's clinical presentation,history and other laboratory results. If the results areinconsistent with clinical evidence, additional testing issuggested to confirm the result. Blood Venous blood specimen / Unknown 11/01/2024 8:27 AM EST 11/01/2024 2:45 PM EST us Dominick Nielsen MD LAB BLOOD ORDERABLES Final Result [facility] [address] [place] [phone] from Last 3 Months or Most Recently Relevant to Health Maintenance Insurance C3 Care Teams Advisory Internship Relationship Specialty Start Date End Date Dominick Nielsen MD [address] [place] [phone] PCP - General Internal Medicine 02/07/16
--- OUTSIDE RECORDS SUMMARY | 2025-07-12 13:41 | XMS_ITS | Encounter Summary ---
Author Organization [employer] Address [address] [facility] 7t [place] [address] Care Team Providers Care Director Of Event Management Name Role Phone Dominick Nielsen MD Primary Care Provider [phone] Reason for Visit * Reason Onset Date Comments Nurse Triage 07/11/2024 Encounter Details Date Type Department Care Team (Late st Contact Info) Description 07/11/2024 Telephone [facility] [address] [place] [address] Dominick Nielsen MD [address] [place] [address] Nurse Triage Social History Tobacco Use Types [...] 3:36 PM EDT Triage call returned with [employer] 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 Patient with HSN as verified with [facility]. Patient had bilateral breast implants removed in April in the [place]. Patient with ongoing non healing area [...] Team tasked tofkenyaow with appt. Patient provided [facility] hours and availability [...] The caller accepted this outcome. Patient speaks italian documented in this encounter Plan of Treatment Not on file documented as of this encounter Visit Diagnoses Not on filedocumented in this encounter Additional Health Concerns Assessment Noted Time PHQ-9 Depression Total Score: 11 023 2:48 PM EST documented as of this encounter Care Teams Director Of Event Management Relationship Specialty Start Date End Date Dominick Nielsen MD [address] [place] [phone] PCP - General Internal Medicine 02/07/16 documented as of this encounter
--- OUTSIDE RECORDS SUMMARY | 2025-07-12 13:41 | XMS_ITS | Encounter Summary ---
Author Organization [employer] Address [address] [facility] 7t [place] [address] Care Team Providers Care Cordwood Cutter Helper Name Role Phone Dominick Nielsen MD Primary Care Provider [phone] Encounter Details Date Type Department Care Team (Late st Contact Info) Description 02/18/2024 Orders Only [facility] [address] [place], [place] [phone] Dominick Nielsen MD [address] [place] [address] Perleche (Primary Dx); Rash in adult Social History Tobacco Use Types Packs/Day Years [...] documented as of this encounter Visit Diagnoses Diagnosis Perleche- Primary Other specified local infections of skin and subcutaneous tissue Rash in adult documented in this encounter Additional Health Concerns Assessment Noted Time PHQ-9 Depression Total Score: 11 023 2:48 PM EST documented as of this encounter Care Teams Cordwood Cutter Helper Relationship Specialty Start Date End Date Dominick Nielsen MD [address] [place] [phone] PCP - General Internal Medicine 02/07/16 documented as of this encounter
--- OUTSIDE RECORDS SUMMARY | 2025-07-12 13:41 | XMS_ITS | Encounter Summary ---
Author Organization [employer] Address [address] [facility] 7t [place] [address] Care Team Providers Care Screen Vent Binder Name Role Phone Dominick Nielsen MD Primary Care Provider [phone] Encounter Details Date Type Department Care Team (Late st Contact Info) Description 03/06/2023 Orders Only [facility] P[facility] [address] [place], [place] [phone] Dominick Nielsen MD [address] [place] [address] Social History Tobacco Use Types Packs/Day Years Used Date Smoking Tobacco: Never Passive Smoke Exposure: Never Smokeless Tobacco: Never Alcohol Use Standard Drinks/Week Comments Never 0 (1 standard drink = 0.6 oz pur e alcohol) Depression Answer Date Recorded Patient Health Questionnaire-9 Score 14 01/06/2023 Depression Answer Date Recorded Patient Health Questionnaire-2 Score 4 01/06/2023 Comments Unknown Sex and Gender Information Value Date Recorded Sex Assigned at Female 08/11/2022 10:29 AM EDT Legal Sex Female 10:29 AM EDT Gender Identity Female 08/11/2022 10:29 AM EDT Sexual Orientation Straight 08/11/2022 10 :29 AM EDT COVID-19 Exposure Response Date Recorded In the last 10 days, have yo u been in contact with someone who was confirmed or suspected to have Coronavirus/COVID-19? No / Unsure 03/04/2023 10:36 AM EDT documented as of this encounter Plan of Treatment Not on file documented as of this encounter Visit Diagnoses Not on filedocumented in this encounter Additional Health Concerns Assessment Noted Time PHQ-9 Depression Total Score: 14 01/06/ 023 8:45 AM EDT documented as of this encounter Care Teams Screen Vent Binder Relationship Specialty Start Date End Date Dominick Nielsen MD [address] [place] [phone] PCP - General Internal Medicine 02/07/16 documented as of this encounter
== END 2025-07-12 13:26 | disposition home or self-care (01) ==
LOC: HO.HWS 12:09
PROVIDERS: PCP Internal Medicine; Visit Provider Obstetrics & Gynecology
DX: R10.20 Pelvic and perineal pain unspecified side (principal); R31.29 Other microscopic hematuria; Z32.02 Encounter for pregnancy test, result negative
CPT/HCPCS: 99213

== ENCOUNTER 2025-07-26 14:45 | Outpatient (REF) | payer MEDICAID, SELFPAY ==
--- OUTSIDE RECORDS SUMMARY | 2025-07-26 19:13 | XMS_ITS | Clinical Summary ---
Author Organization [facility] Address [address] [place] [address] Care Team Providers Care Mail Distributor Name Role Phone Dominick Nielsen MD Primary Care Provider [phone] Surgical History Surgery Date Site/Laterality Comments APPENDECTOMY [...] age to complete this topic Care Teams Mail Distributor Relationship Specialty Start Date End Date Dominick Nielsen MD [address] [place] [address] PCP - General Internal Medicine 06/24/22
== END 2025-07-26 14:46 | disposition home or self-care (01) ==
LOC: HO.LAB 14:45
PROVIDERS: PCP Internal Medicine; Visit Provider Advanced Practice Midwife
DX: R10.22 Pelvic and perineal pain left side (principal); Z20.2 Contact with and (suspected) exposure to infections with a predominantly sexual mode of transmission; Z32.02 Encounter for pregnancy test, result negative
CPT/HCPCS: 81003; 81025; 81515; 87491; 87591; 99212

== ENCOUNTER 2025-07-26 14:45 | Outpatient (AMB) | payer MEDICAID, SELFPAY ==
--- NOTE | 2025-07-26 15:39 | MHC.OFFVIS ---
Intake Visit Reasons: vaginal discharge Maintenance Repairer: Maintenance Repairer Present (Iman) Allergies aspirin Allergy (Mild, Verified 07/26/25 15:39) Rash HPI Comments Details: Patient is here today with concerns that she has a recurrent BV symptoms, odor, discharge, burning with urination. She completed BV treatment last week. Pelvic pain on the left for a month, increased in the last days. History of ovarian cyst. Mirena IUD user. [facility] Medical History IUD surveillance Scoliosis COVID-19 vaccine series completed TOMASA I (cervical intraepithelial neoplasia I) History of asthma Surgical History History of lumpectomy of right breast (07/16/22) History of loop electrical excision procedure (LEEP) Hx of abdominoplasty Hx of breast augmentation (2017) Hx of appendectomy Family History Maternal Grandmother Diabetes HTN (hypertension) Social History Household Members Other:: son (minor child) Are you a primary career placement specialist to a significant other at home: Yes Do you presently have visiting nurse or other home services: No Alcohol intake: never Patient Tobacco Use Status: Never used Tobacco Sexual orientation: Straight/Heterosexual Gender identity: Female Female Reproductive History Menstrual Age of Menarche: 15 Review of Systems Const All systems reviewed & are unremarkable except as noted in HPI and below Physical Exam Const General: cooperative, healthy appearing and no acute distress Orientation/consciousness: patient oriented x3 GI Inspection: Yes normal to inspection and Yes scar Palpation (GI): Soft to palpation and Other GI palpation findings present (Nontender) Rectal Exam - Female: visual inspection normal General: Yes bladder normal to palpation External Female Exam: normal appearance of the urethra Speculum Exam - Vagina: normal appearance of the vagina, normal palpation and normal vaginal discharge Speculum Exam - Cervix: normal appearance of the cervix, normal palpation and Other cervical findings present (IUD strings at the os) Bimanual exam- vagina & uterus: normal bimanual exam, normal palpation, uterine size normal, bladder normal to palpation, normal palpation, uterine shape normal and non-tender Bimanual Exam- Adnexa, other: normal adnexae and tender (mild) on the left Neuro General: patient oriented x3 Results AMB Test Urine AMB Test Urine Negative Last Edit by Madie Barillasgiovanna [facility] on 07/26/25 16:06 AMB Urinalysis, Automated UA Leukoctes 0 Anum/uL Last Edit by Madie Aftab Nargisgiovanna [facility] on 07/26/25 16:06 UA Nitrite Negative Last Edit by Madie Aftab Caldwellpedro [facility]abl[facility] on 07/26/25 16:06 UA Urobilinogen 0 mg/dL Last Edit by Madie Aftab Lyons [facility] on 07/26/25 16:06 UA Protein 0 mg/dL Last Edit by Madie Aftab Lyons [facility] on 07/26/25 16:06 UA pH 6.5 Last Edit by Madie Barillasgiovanna [facility] on 07/26/25 16:06 UA Blood 0 Denilson/uL Last Edit by Madie Aftab Lyons [facility] on 07/26/25 16:06 UA Specific Warriormine 1.010 Last Edit by Madie Aftab Caldwellpedro pablogiovanna [facility] on 07/26/25 16:06 UA Ketone Negative Last Edit by Madie Aftab Caldwellpedro pablogi[facility] on 07/26/25 16:06 UA Bilirubin 0 mg/dL Last Edit by Madie Aftab Lyons [facility] on 07/26/25 16:06 UA Glucose 0 mg/dL Last Edit by Madie Caldwelltiffanie [facility] on 07/26/25 16:06 Assessment & Plan Assessment & Plan (1) Pelvic pain: Code(s): R10.2 - Pelvic and perineal pain Category: Medical Plan Discussed: Ultrasound ordered for sooner appointment, pelvic rest and warnings reviewed and when to seek emergent care for immediate care in the ED,for increased pain, or persistent pain. OTC comfort measure. BV common protocols including boric acid, use of condoms, gut health and women's probiotics. GC chlamydia and BV panel obtained. UPT and urine dip are negative. The patient expressed understanding and agreement with the plan of care. All of her questions and concerns were addressed to the best of my ability. Follow up pending results for plan of care. This note is constructed using voice recognition software. While every effort has been made to ensure accuracy, road grader operator errors may have been included. Orders: Orders Bacterial Vaginosis Panel Today N89.8 - Other specified noninflammatory disorders of vagina, R10.20 - Pelvic and perineal pain unspecified side US pelvic and transvaginal Today R10.20 - Pelvic and perineal pain unspecified side, Z30.431 - Encounter for routine checking of intrauterine contraceptive device CT NG by PCR Vag/Cerv Today N89.8 - Other specified noninflammatory disorders of vagina, R10.20 - Pelvic and perineal pain unspecified side AMB HCG Urine Test Today R10.20 - Pelvic and perineal pain unspecified side AMB Urinalysis Automated Today R10.20 - Pelvic and perineal pain unspecified side Coding Level of Care Code Est Pt Level 3 (23286) Diagnoses Pelvic pain R10.2
--- OUTSIDE RECORDS SUMMARY | 2025-07-26 18:28 | XMS_ITS | Encounter Summary ---
Author Organization [employer] Address [address] [facility] 7t [place] [address] Care Team Providers Care Cartographic Designer Name Role Phone Dominick Nielsen MD Primary Care Provider [phone] Reason for Visit * Reason Onset Date Comments Nurse Triage 07/11/2024 Encounter Details Date Type Department Care Team (Late st Contact Info) Description 07/11/2024 Telephone [facility] MEDICINE [address] [place] [address] Dominick Nielsen MD [address] [place] [address] Nurse Triage Social History Tobacco Use Types [...] 3:36 PM EDT Triage call returned with [employer] W[employer] Manager [phone]. Patient with HSN as verified with Darian. Patient had bilateral breast implants removed in April in the [place]. Patient with ongoing non healing area [...] Team tasked tofkenyaow with appt. Patient provided [facility] Walk In Center hours and availability as [...] The caller accepted this outcome. Patient speaks french documented in this encounter Plan of Treatment Not on file documented as of this encounter Visit Diagnoses Not on filedocumented in this encounter Additional Health Concerns Assessment Noted Time PHQ-9 Depression Total Score: 11 023 2:48 PM EST documented as of this encounter Care Teams Cartographic Designer Relationship Specialty Start Date End Date Dominick Nielsen MD [address] [place] [phone] PCP - General Internal Medicine 02/07/16 documented as of this encounter
--- OUTSIDE RECORDS SUMMARY | 2025-07-26 18:28 | XMS_ITS | Encounter Summary ---
Author Organization [employer] Address [address] [facility] 7t [place] [address] Care Team Providers Care Supervisor Mail Carriers Name Role Phone Dominick Nielsen MD Primary Care Provider [phone] Encounter Details Date Type Department Care Team (Late st Contact Info) Description 07/07/2023 Orders Only [facility] MEDICINE [address] [place] [address] Suzan Mckinley Social History Tobacco Use Types [...] documented as of this encounter Care Teams Supervisor Mail Carriers Relationship Specialty Start Date End Date Dominick Nielsen MD [address] [place] [address] PCP - General Internal Medicine 02/07/16 documented as of this encounter
--- OUTSIDE RECORDS SUMMARY | 2025-07-26 18:28 | XMS_ITS | Encounter Summary ---
Author Organization [facility] Address [address] [facility] 7t [place] [address] Care Team Providers Care Die Lay Out Worker Name Role Phone Dominick Nielsen MD Primary Care Provider [phone] Encounter Details Date Type Department Care Team (Late st Contact Info) Description 07/07/2023 Orders Only [facility] MEDICINE [address] [place] [address] Provider, Lev, Social History Tobacco Use Types [...] documented as of this encounter Care Teams Die Lay Out Worker Relationship Specialty Start Date End Date Dominick Nielsen MD [address] [place] [phone] PCP - General Internal Medicine 02/07/16 documented as of this encounter
--- OUTSIDE RECORDS SUMMARY | 2025-07-26 18:28 | XMS_ITS | Encounter Summary ---
Author Organization [employer] Address [address] [facility] 7t [place] [address] Care Team Providers Care Cvicu Nurse Name Role Phone Dominick Nielsen MD Primary Care Provider [phone] Encounter Details Date Type Department Care Team (Late st Contact Info) Description 03/06/[address] [facility] MED & PEDS [address] [place], [place] [phone] Dominick Nielsen MD [address] [place] [address] Social History Tobacco Use Types Packs/Day Years [...] documented as of this encounter Care Teams Cvicu Nurse Relationship Specialty Start Date End Date Dominick Nielsen MD [address] [place] [address] PCP - General Internal Medicine 02/07/16 documented as of this encounter
--- OUTSIDE RECORDS SUMMARY | 2025-07-26 18:28 | XMS_ITS | Encounter Summary ---
Author Organization [employer] Address [address] [facility] 7t [place] [address] Care Team Providers Care Watershed Coordinator Name Role Phone Dominick Nielsen MD Primary Care Provider [phone] Encounter Details Date Type Department Care Team (Late st Contact Info) Description 02/18/2024 Orders Only [facility] CHC MED & PEDS [address] [place], [place] [phone] Dominick Nielsen MD [address] [place] [address] Perleche (Primary Dx); Rash in adult Social [...] documented as of this encounter Care Teams Watershed Coordinator Relationship Specialty Start Date End Date Dominick Nielsen MD [address] [place] [phone] PCP - General Internal Medicine 02/07/16 documented as of this encounter
--- OUTSIDE RECORDS SUMMARY | 2025-07-26 18:28 | XMS_ITS | Clinical Summary ---
Author Organization [employer] Address [address] [facility] 7t [place] [address] Care Team Providers Care Coffee Shop Aide Name Role Phone Dominick Nielsen MD Primary Care Provider [phone] Allergies Active Allergy Reactions Criticality Noted Date [...] Asthma 02/07/2016 Scoliosis deformity of spine 02/07/2016 Immunizations Immunization Administration Dates Next Due Hep [...] Procedure Name Priority Date/Time Associated Diagnosis Comments CULTURE, URINE, ROUTINE Routine 07/12/2025 12:09 PM EDT CHLAMYDIA/N. GONORRHOEAE RNA, TMA, UROGENITAL Routine 07/12/2025 12:09 PM EDT HPV DNA, LOW/HIGH RISK Routine 04/11/2025 1:48 PM EDT PAP SMEAR Routine 04/11/2025 1:48 PM EDT HEPATITIS C AB W/REFL TO HCV RNA, QN, PCR Routine 11/01/2024 8:27 AM EST Routine screening for STI (sexually transmitted infection) HIV 1/2 ANTIGEN/ANTIBODY, FOURTH GENERATION W/RFL Routine 11/01/2024 8:27 AM EST Routine screening for STI (sexually transmitted infection) from Last 3 Months or Most Recently Relevant to Health Maintenance Results * Chlamydia/N. Gonorrhoeae RNA, TMA, Urogenitial (07/12/2025 12:09 PM EDT) CT PCR NOT DETECTED Not Detect. [facility] Comment:A not detected test result does not exclude the possibilityof infection because test results can be affected byimproper specimen collection, concurrent antibiotic therapy,or the number of organisms in the specimen which may bebelow the sensitivity of the test. As with many diagnostictests, results from the Xpert CT/NG assay should beinterpreted in conjunction with other laboratory andclinical data available to the clinician.Xpert CT/NG performance has not been evaluated in patientsless than 14 years of age. The assay should not be used forthe evaluationof suspected sexual abuse or for other medico-legalindications. Additional testing is recommended in anycircumstance when false positive or false negative resultscould lead to adverse medical, social or psychologicalconsequences. NG PCR NOT DETECTED Not Detect. [facility] Comment:A not detected test result does not exclude the possibilityof infection because test results can be affected byimproper specimen collection, concurrent antibiotic therapy,or the number of organisms in the specimen which may bebelow the sensitivity of the test. As with many diagnostictests, results from the Xpert CT/NG assay should beinterpreted in conjunction with other laboratory andclinical data available to the clinician.Xpert CT/NG performance has not been evaluated in patientsless than 14 years of age. The assay should not be used forthe evaluationof suspected sexual abuse or for other medico-legalindications. Additional testing is recommended in anycircumstance when false positive or false negative resultscould lead to adverse medical, social or psychologicalconsequences. 07/12/2025 12:0 9 PM EDT 07/12/2025 3:27 PM EDT us Generic External Data Provider LAB MICROBIOLOGY - GENERAL ORDERABLES Final Result [facility] [address] [place] [phone] * Culture, Urine, Routine (07/12/2025 12:09 PM EDT) Urine Urine specimen obtained by clean catch procedure / Unknown 07/12/2025 12:09 PM EDT 07/12/2025 3:27 PM EDT Comment:UACC Narrative [facility] - 07/13/2025 12:15 PM EDT Urine Culture No growth. Specimen Source: Urine clean catch Generic External Data Provider LAB MICROBIOLOGY - GENERAL ORDERABLES Final Result Performing Organization Address [facility] Co de Phone Number [facility] [address] [place] [phone] * HPV DNA, Low/High Risk (04/11/2025 1:48 PM EDT) HPV High Risk Negative Negative [facility] HPV Genotype 16 Negative Negative [facility] HPV Genotype 18 Negative Negative [facility] Comment:HPV testing performe d at [facility] (CLIA#[id number]), [address] [place] [address].Testing for HPV was performed using the [employer]system. The presence of HPV in the female [...] 1:48 PM EDT 04/12/2025 8:25 AM EDT Generic External Data Provider LAB BLOOD ORDERAB LES Final Result Performing Organization Address [facility] Co de Phone Number [facility] [address] [place] [phone] [phone] * Pap Smear (04/11/2025 1:48 PM EDT) 04/11/2025 1:48 PM EDT 04/12/2025 8:25 AM EDT Narrative [facility] - 04/18/2025 12:31 PM EDT ----- ------- Name: Justin Dillon Age/Sex: 39/F : 1985 Unit#: [id number] Attend Dr: Myron Pham MD Re04/11/25 Status: DEP REF Location: [facility] Disch: ----- ------- SPEC : [id number] RECD: 04/12/25 STATUS: LAURYN VASQUEZ NUM: [id number] SEPIDEH: 04/11/25-[address] [facility] [address]: Myron Pham MD ENTERED: 04/12/25 SP [...] and HPV testing will be performed at [facility] (CLIA #[id number]), [address] [place] [address]. Testing for HPV was performed using the [...] detected. All professional services are performed by [facility] ([address] [place] [address]; ; CLIA #[id number]). The PAP Test is a screening procedure with the inherent possibility of both false negative and false positive results. Results should be interpreted in the context of historic and current clinical findings. Reliability of the PAP Test is enhanced by performing the test on a regular repetitive basis. CONTINUED ON NEXT PAGE ----- ------- Name: Justin Dillon Age/Sex: 39/F : 1985 Unit#: [id number] Attend Dr: Myron Pham MD Re04/11/25 Status: DEP REF Location: [facility] Disch: ----- ------- SPEC : [id number] RECD: 04/12/25 STATUS: LAURYN VASQUEZ NUM: [id number] SEPIDEH: 04/11/[address] [facility] [address]: Myron Pham MD ENTERED: 04/12/25 SP TYPE: Pap Smr OT DR: Dominick Nielsen MD ORDERED: Pap Smear Copies To: Dominick Nielsen MD [facility] [address] [place] [address] Myron Pham MD [facility] [address] [place] [address] ----- ------- Signed (signature on file) TRISTAN Carrasco (ASCP) 04/18/25 1231 ----- ------- END OF REPORT Generic External Data Provider LAB CYTOLOGY FRANK TOLLIVER Final Result [facility] [address] [place] [phone] * Hepatitis C Antibody with Reflex to HCV, RNA, Quantitative, Real-Time PCR (11/01/2024 8:27 AM EST) Hepatitis C Antibody Nonreactive Nonreactive [facility] Comment:Antibodies to HCV no t detected; does not exclude early acuteHCV infection. Blood Venous blood specimen / Unknown 11/01/2024 8:27 AM EST 11/01/2024 2:45 PM EST us Dominick Nielsen MD LAB BLOOD ORDERABLES Final Result Performing Organization Address [facility]/ZIP Co de Phone Number [facility] [address] [place] [phone] * HIV-1/2 Antigen and Antibodies, Fourth Generation, with Reflexes (11/01/2024 8:27 AM EST) HIV AB/AG Nonreactive Nonreactive [facility] Comment:HIV-1 p24 Ag and/or HIV-1/HIV-2 Ab not detected.A test result that is nonreactive does not exclude thepossibility of exposure to or infection with HIV-1 and/orHIV-2. Nonreactive results in this assay for individualswith prior exposure to HIV-1 and/or HIV-2 may be due toantigen and antibody levels that are below the limit ofdetection of this assay.The Vurb HIV Ag/Ab Combo assay result andsupplemental assay results should be interpreted inconjunction with the patient's clinical presentation,history and other laboratory results. If the results areinconsistent with clinical evidence, additional testing issuggested to confirm the result. Blood Venous blood specimen / Unknown 11/01/2024 8:27 AM EST 11/01/2024 2:45 PM EST us Dominick Nielsen MD LAB BLOOD ORDERABLES Final Result Performing Organization Address City/[facility]/ZIP Co de Phone Number [facility] [address] [place] [phone] from Last 3 Months or Most Recently Relevant to Health Maintenance Insurance [facility] C3 Care Teams Coffee Shop Aide Relationship Specialty Start Date End Date Dominick Nielsen MD [address] [place] [phone] PCP - General Internal Medicine 02/07/16
--- OUTSIDE RECORDS SUMMARY | 2025-07-26 18:28 | XMS_ITS | Encounter Summary ---
Author Organization [employer] Address [address] [facility] 7t [place] [address] Care Team Providers Care Professional Volleyball Player Name Role Phone Dominick Nielsen MD Primary Care Provider [phone]- [phone] Encounter Details Date Type Department Care Team (Late st Contact Info) Description 05/22/2023 Orders Only [facility] CHC MED & PEDS [address] [place] [address] Dominick Nielsen MD [address] [place] [address] Social History Tobacco Use Types Packs/Day Years [...] documented as of this encounter Care Teams Professional Volleyball Player Relationship Specialty Start Date End Date Dominick Nielsen MD [address] [place] [address] PCP - General Internal Medicine 02/07/16 documented as of this encounter
== END 2025-07-27 08:11 | disposition home or self-care (01) ==
LOC: HO.HWS 14:45
PROVIDERS: PCP Internal Medicine; Visit Provider Advanced Practice Midwife
DX: R10.20 Pelvic and perineal pain unspecified side (principal)
CPT/HCPCS: 99213

== ENCOUNTER 2025-07-26 16:02 | Outpatient (REF) | payer MEDICAID, SELFPAY ==
[2025-07-27 05:06] LABS: CT PCR NOT DETECTED (Not Detect.); NG PCR NOT DETECTED (Not Detect.)
[2025-07-27 05:21] LABS: Bacterial Vaginosis PCR NEGATIVE (Negative); Candida Group PCR NOT DETECTED (Not Detect); Candida glab krusei PCR NOT DETECTED (Not Detect); Trichomonas vaginalis PCR NOT DETECTED (Not Detect)
== END 2025-07-26 16:03 | disposition home or self-care (01) ==
LOC: HO.LNP 16:02
PROVIDERS: Visit Provider Advanced Practice Midwife
DX: Z13.89 Encounter for screening for other disorder (principal)
CPT/HCPCS: 81515; 87491; 87591

== ENCOUNTER 2025-08-02 09:29 | Outpatient (REF) | payer MEDICAID, SELFPAY ==
[2025-08-03 06:12] LABS: Bacterial Vaginosis PCR NEGATIVE (Negative); Candida Group PCR NOT DETECTED (Not Detect); Candida glab krusei PCR NOT DETECTED (Not Detect); Trichomonas vaginalis PCR NOT DETECTED (Not Detect)
[2025-08-03 06:42] LABS: CT PCR NOT DETECTED (Not Detect.); NG PCR NOT DETECTED (Not Detect.)
== END 2025-08-02 09:30 | disposition home or self-care (01) ==
LOC: HO.LNP 09:29
PROVIDERS: PCP Internal Medicine; Visit Provider Obstetrics & Gynecology
DX: N89.8 Other specified noninflammatory disorders of vagina (principal); R31.29 Other microscopic hematuria; Z20.2 Contact with and (suspected) exposure to infections with a predominantly sexual mode of transmission
CPT/HCPCS: 81002; 81515; 87491; 87591; 99212

== ENCOUNTER 2025-08-02 09:29 | Outpatient (AMB) | payer MEDICAID, SELFPAY ==
[2025-08-02 09:50] VITALS: BMI 27.6
--- NOTE | 2025-08-02 09:50 | MHC.OFFVIS ---
Vital Signs 08/02/25 09:50 Height 5 ft 1 in Weight 146 lb BMI 27.6 Intake Visit Reasons: repeat urine dip Allergies aspirin Allergy (Mild, Verified 07/26/25 15:39) Rash HPI Comments Details: Presenting for repeat urine dip. Last Visit urine dip showed microscopic hematuria, urine culture showed no growth The patient is complaining of vaginal discharge associated with foul odor PFSH Medical History IUD surveillance Scoliosis COVID-19 vaccine series completed TOMASA I (cervical intraepithelial neoplasia I) History of asthma Surgical History History of lumpectomy of right breast (07/16/22) History of loop electrical excision procedure (LEEP) Hx of abdominoplasty Hx of breast augmentation (2017) Hx of appendectomy Family History Maternal Grandmother Diabetes HTN (hypertension) Social History Household Members Other:: son (minor child) Are you a primary acute care surgeon to a significant other at home: Yes Do you presently have visiting nurse or other home services: No Alcohol intake: never Patient Tobacco Use Status: Never used Tobacco Sexual orientation: Straight/Heterosexual Gender identity: Female Female Reproductive History Menstrual Age of Menarche: 15 Review of Systems Const All systems reviewed & are unremarkable except as noted in HPI and below Reports as per HPI and Reports no additional complaints GI Reports no additional complaints Reports no additional complaints Physical Exam Vital Signs: BMI result Body Mass Index 27.6 General: Yes no CVA tenderness External Female Exam: normal external appearance and normal appearance of the urethra Speculum Exam - Vagina: normal appearance of the vagina, normal palpation, no lesions and no masses Speculum Exam - Cervix: normal appearance of the cervix, normal palpation, no lesions, no masses and nontender Bimanual exam- vagina & uterus: normal bimanual exam, normal palpation, uterine size normal, normal palpation, uterine shape normal, No Cervical tenderness present and non-tender Bimanual Exam- Adnexa, other: normal adnexae Back/Spine/Pelvis Back: no CVA tenderness Assessment & Plan Assessment & Plan (1) Microscopic hematuria: Code(s): R31.29 - Other microscopic hematuria Category: Medical Plan: Repeat urine dip showed no evidence of microscopic hematuria, the patient was reassured. (2) Vaginal discharge: Code(s): N89.8 - Other specified noninflammatory disorders of vagina Category: Medical Plan: GC and chlamydia cultures with BV panel taken. Will treat with Flagyl 500 mg p.o. b.i.d. x 7 days, Instructions given to the patient to refrain from sexual activity or to use condoms consistently and correctly during the BV treatment regimen, not to douch, it might increase the risk for relapse, and to call if symptoms persist or recur. Orders: Orders AMB Urinalysis Dipstick Today R31.29 - Other microscopic hematuria Medications: New metronidazole 500 mg PO BID 14 tabs 0RF 7 days Coding Level of Care Code Est Pt Level 3 (78712) Diagnoses Microscopic hematuria R31.29 Vaginal discharge N89.8
--- OUTSIDE RECORDS SUMMARY | 2025-08-02 10:51 | XMS_ITS | Encounter Summary ---
Author Organization [employer] Address [address] [facility] 7t [place] [address] Care Team Providers Care Cost Accounting Analyst Name Role Phone Dominick Nielsen MD Primary Care Provider [phone] Reason for Visit * Reason Onset Date Comments Nurse Triage 07/11/2024 Encounter Details Date Type Department Care Team (Late st Contact Info) Description 07/11/2024 Telephone [facility] MEDICINE [address] [place] [address] Dominick Nielsen MD [address] [place] [address] Nurse Triage Social History Tobacco Use Types [...] 3:36 PM EDT Triage call returned with [employer] [id number]. Patient with HSN as verified with [employer]. Patient had bilateral breast implants removed in April in the [place]. Patient with ongoing non healing area [...] Team tasked tofkenyaow with appt. Patient provided [facility] Walk In Center hours and [...] The caller accepted this outcome. Patient speaks divehi documented in this encounter Plan of Treatment Not on file documented as of this encounter Visit Diagnoses Not on filedocumented in this encounter Additional Health Concerns Assessment Noted Time PHQ-9 Depression Total Score: 11 023 2:48 PM EST documented as of this encounter Care Teams Cost Accounting Analyst Relationship Specialty Start Date End Date Dominick Nielsen MD [address] [place] [phone] PCP - General Internal Medicine 02/07/16 documented as of this encounter
--- OUTSIDE RECORDS SUMMARY | 2025-08-02 10:51 | XMS_ITS | Clinical Summary ---
Author Organization [facility] Address [address] [place] [address] Care Team Providers Care Supervisor Concrete Block Plant Name Role Phone Dominick Nielsen MD Primary Care Provider [phone] Surgical History Surgery Date Site/Laterality Comments APPENDECTOMY [...] age to complete this topic Care Teams Supervisor Concrete Block Plant Relationship Specialty Start Date End Date Dominick Nielsen MD [address] [place] [address] PCP - General Internal Medicine 06/24/22
--- OUTSIDE RECORDS SUMMARY | 2025-08-02 10:51 | XMS_ITS | Encounter Summary ---
Author Organization [employer] [facility] Address 75 [facility] 7t [place] [address] Care Team Providers Care Cotton Buyer Name Role Phone Dominick Nielsen MD Primary Care Provider [phone] Encounter Details Date Type Department Care Team (Late st Contact Info) Description 07/07/2023 Orders Only [facility] MEDICINE [address] [place] [address] Provider, Lev, Social History Tobacco Use Types [...] documented as of this encounter Care Teams Cotton Buyer Relationship Specialty Start Date End Date Dominick Nielsen MD [address] [place] [phone] PCP - General Internal Medicine 02/07/16 documented as of this encounter
--- OUTSIDE RECORDS SUMMARY | 2025-08-02 10:51 | XMS_ITS | Encounter Summary ---
Author Organization [employer] Address 75 [facility] 7t [place] [address] Care Team Providers Care Clinical Nurse Manager Name Role Phone Dominick Nielsen MD Primary Care Provider [phone] Encounter Details Date Type Department Care Team (Late st Contact Info) Description 02/18/2024 Orders Only [facility] CHC MED & PEDS [address] [place], [place] [phone] Dominick Nielsen MD [address] [place] [address] Perleche (Primary Dx); Rash in adult Social [...] documented as of this encounter Care Teams Clinical Nurse Manager Relationship Specialty Start Date End Date Dominick Nielsen MD [address] [place] [address] PCP - General Internal Medicine 02/07/16 documented as of this encounter
--- OUTSIDE RECORDS SUMMARY | 2025-08-02 10:51 | XMS_ITS | Encounter Summary ---
Author Organization [employer] Address 75 [facility] 7t [place] [address] Care Team Providers Care Can Machine Operator Name Role Phone Dominick Nielsen MD Primary Care Provider [phone] Encounter Details Date Type Department Care Team (Late st Contact Info) Description 07/07/2023 Orders Only [facility] MEDICINE [address] [place] [address] Suzan Mckinley Social History Tobacco Use Types [...] documented as of this encounter Care Teams Can Machine Operator Relationship Specialty Start Date End Date Dominick Nielsen MD [address] [place] [address] PCP - General Internal Medicine 02/07/16 documented as of this encounter
--- OUTSIDE RECORDS SUMMARY | 2025-08-02 10:51 | XMS_ITS | Encounter Summary ---
Author Organization [employer] Address 75 [facility] 7t [place] [address] Care Team Providers Care Glaze Maker Name Role Phone Dominick Nielsen MD Primary Care Provider [phone]- [phone] Encounter Details Date Type Department Care Team (Late st Contact Info) Description 05/22/2023 Orders Only [facility] CHC MED & PEDS [address] [place] [address] Dominick Nielsen MD [address] [place] [address] Social History Tobacco Use Types Packs/Day Years [...] documented as of this encounter Care Teams Glaze Maker Relationship Specialty Start Date End Date Dominick Nielsen MD [address] [place] [address] PCP - General Internal Medicine 02/07/16 documented as of this encounter
--- OUTSIDE RECORDS SUMMARY | 2025-08-02 10:51 | XMS_ITS | Encounter Summary ---
Author Organization [employer] Address 75 [facility] 7t [place] [address] Care Team Providers Care Silver Buffer Name Role Phone Dominick Nielsen MD Primary Care Provider [phone]- [phone] Encounter Details Date Type Department Care Team (Late st Contact Info) Description 03/06/2023 Orders Only [facility] CHC MED & PEDS [address] [place], [place] [phone] Dominick Nielsen MD [address] [place] [address] Social History Tobacco Use Types Packs/Day Years [...] documented as of this encounter Care Teams Silver Buffer Relationship Specialty Start Date End Date Dominick Nielsen MD [address] [place] [address] PCP - General Internal Medicine 02/07/16 documented as of this encounter
--- OUTSIDE RECORDS SUMMARY | 2025-08-02 10:52 | XMS_ITS | Clinical Summary ---
Author Organization [employer] Address 75 [facility] 7t [place] [address] Care Team Providers Care Forensic Science Examiner Name Role Phone Dominick Nielsen MD Primary Care Provider +[phone]- [phone] Allergies Active Allergy Reactions Criticality Noted Date [...] EDT) CT PCR NOT DETECTED Not Detect. [facility] Comment:A not detected test result does [...] psychologicalconsequences. NG PCR NOT DETECTED Not Detect. [facility] Comment:A not detected test result does [...] LAB MICROBIOLOGY - GENERAL ORDERABLES Final Result [facility] [address] [place] [phone] * Culture, Urine, Routine (07/12/2025 12:09 PM EDT) Urine Urine specimen obtained by clean catch procedure / Unknown 07/12/2025 12:09 PM EDT 07/12/2025 3:27 PM EDT Comment:UACC Narrative [facility] - 07/13/2025 12:15 PM EDT Urine Culture No growth. Specimen Source: Urine clean catch Generic External Data Provider LAB MICROBIOLOGY - GENERAL ORDERABLES Final Result Performing Organization Address [facility] Co de Phone Number [facility] [address] [place] [phone] * HPV DNA, Low/High Risk (04/11/2025 1:48 PM EDT) HPV High Risk Negative Negative [facility] HPV Genotype 16 Negative Negative [facility] HPV Genotype 18 Negative Negative [facility] Comment:HPV testing performe d at [facility] (CLIA#[id number]), [address] [place] [address].Testing for HPV was performed using the [employer] eduplanet KK0system. The presence of HPV in the female [...] ORDERAB LES Final Result Performing Organization Address [facility] Co de Phone Number [facility] [address] [place] [phone] * Pap Smear (04/11/2025 1:48 PM EDT) 04/11/2025 1:48 PM EDT 04/12/2025 8:25 AM EDT Narrative [facility] - 04/18/2025 12:31 PM EDT ----- ------- Name: Justin Dillon Age/Sex: 39/F : 1985 Unit#: [id number] Attend Dr: Myron Pham MD Re04/11/25 Status: DEP REF Location: [facility] Disch: ----- ------- SPEC : [id number] RECD: 04/12/25 STATUS: LAURYN VASQUEZ NUM: [id number] SEPIDEH: 04/11/25-1347 [facility] DR: Myron Pham MD ENTERED: 04/12/25 [...] and HPV testing will be performed at [facility] (CLIA #[id number]), [address] [place] [address]. Testing for HPV was performed using the [...] detected. All professional services are performed by [facility] ([address] [place] [address]; ; CLIA #[id number]). The PAP Test is a screening procedure with the inherent possibility of both false negative and false positive results. Results should be interpreted in the context of historic and current clinical findings. Reliability of the PAP Test is enhanced by performing the test on a regular repetitive basis. CONTINUED ON NEXT PAGE ----- ------- Name: Justin Dillon Age/Sex: 39/F : 1985 Unit#: [id number] Attend Dr: Myron Pham MD Re04/11/25 Status: DEP REF Location: [facility] Disch: ----- ------- SPEC : [id number] RECD: 04/12/25 STATUS: LAURYN VASQUEZ NUM: [id number] SEPIDEH: 04/11/[address] [facility] [address]: Myron Pham MD ENTERED: 04/12/25 SP TYPE: Pap Smr OT DR: Dominick Nielsen MD ORDERED: Pap Smear Copies To: Dominick Nielsen MD [facility] [address] [place] [address] Myron Pham MD [facility] [address] [place] [address] ----- ------- Signed (signature on file) TRISTAN Carrasco (ASCP) 04/18/25 1231 ----- ------- END OF REPORT Generic External Data Provider LAB CYTOLOGY FRANK TOLLIVER Final Result [facility] [address] [place] [phone] * Hepatitis C Antibody with Reflex to HCV, RNA, Quantitative, Real-Time PCR (11/01/2024 8:27 AM EST) Hepatitis C Antibody Nonreactive Nonreactive [facility] Comment:Antibodies to HCV no t detected; does not exclude early acuteHCV infection. Blood Venous blood specimen / Unknown 11/01/2024 8:27 AM EST 11/01/2024 2:45 PM EST us Dominick Nielsen MD LAB BLOOD ORDERABLES Final Result Performing Organization Address [facility]/ZIP Co de Phone Number [facility] [address] [place] [phone] * HIV-1/2 Antigen and Antibodies, Fourth Generation, with Reflexes (11/01/2024 8:27 AM EST) HIV AB/AG Nonreactive Nonreactive [facility] Comment:HIV-1 p24 Ag and/or HIV-1/HIV-2 Ab not detected.A test result that is nonreactive does not exclude thepossibility of exposure to or infection with HIV-1 and/orHIV-2. Nonreactive results in this assay for individualswith prior exposure to HIV-1 and/or HIV-2 may be due toantigen and antibody levels that are below the limit ofdetection of this assay.The [employer] HIV Ag/Ab Combo assay result andsupplemental assay results should be interpreted inconjunction with the patient's clinical presentation,history and other laboratory results. If the results areinconsistent with clinical evidence, additional testing issuggested to confirm the result. Blood Venous blood specimen / Unknown 11/01/2024 8:27 AM EST 11/01/2024 2:45 PM EST us Dominick Nielsen MD LAB BLOOD ORDERABLES Final Result Performing Organization Address City/[facility]/ZIP Co de Phone Number [facility] [address] [place] [phone] from Last 3 Months or Most Recently Relevant to Health Maintenance Insurance [facility] C3 Care Teams Forensic Science Examiner Relationship Specialty Start Date End Date Dominick Nielsen MD [address] [place] [phone] PCP - General Internal Medicine 02/07/16
== END 2025-08-02 10:14 | disposition home or self-care (01) ==
LOC: HO.HWS 09:29
PROVIDERS: PCP Internal Medicine; Visit Provider Obstetrics & Gynecology
DX: R31.29 Other microscopic hematuria (principal); N89.8 Other specified noninflammatory disorders of vagina
CPT/HCPCS: 99213

== ENCOUNTER 2025-08-10 12:34 | Outpatient (REF) | payer MEDICAID, SELFPAY ==
--- NOTE | ~2025-08-10 | US_ITS ---
EXAMINATION: US PELVIS TRANSABDOMINAL AND TRANSVAGINAL HISTORY: R10.20 - Pelvic and perineal pain unspecified side COMPARISON: Comparison is made with the prior examination dated 02/06/2023. TECHNIQUE: Transabdominal and endovaginal real-time 2D cason-scale ultrasound was performed. FINDINGS: Uterus: The uterus is normal in size, measuring 6.3 x 4.0 x 4.1 cm. Myometrium has a normal echotexture. No fibroids are identified. Endometrium: The endometrial stripe measures 6 mm in thickness. An IUD is noted in appropriate position in the endometrial cavity. Right ovary: The right ovary measures 3.1 x 1.9 x 1.6 cm. The right ovary is normal in size and echotexture. Left ovary: The left ovary measures 3.4 x 1.9 x 1.8 cm. The left ovary is normal in size and echotexture. Pelvic fluid: none. US/US pelvic and transvaginal IMPRESSION: Unremarkable pelvic ultrasound. IUD in appropriate position in the endometrial canal. Electronically signed by: Gregorio Ambrosio MD 08/10/2025 01:10 PM EDT
--- OUTSIDE RECORDS SUMMARY | 2025-08-10 15:26 | XMS_ITS | Encounter Summary ---
Author Organization [employer] Address 75 [facility] 7t [place] [address] Care Team Providers Care Production Control Technologist Name Role Phone Dominick Nielsen MD Primary Care Provider [phone] Reason for Visit * Reason Onset Date Comments Nurse Triage 07/11/2024 Encounter Details Date Type Department Care Team (Late st Contact Info) Description 07/11/2024 Telephone [facility] MEDICINE [address] [place] [address] Dominick Nielsen MD [address] [place] [address] Nurse Triage Social History Tobacco Use Types [...] 3:36 PM EDT Triage call returned with [employer] [phone]. Patient with HSN as verified with Darian. Patient had bilateral breast implants removed in April in the [place]. Patient with ongoing non healing area [...] Team tasked tofkenyaow with appt. Patient provided [facility] Walk In Center hours and availability [...] The caller accepted this outcome. Patient speaks greek documented in this encounter Plan of Treatment Not on file documented as of this encounter Visit Diagnoses Not on filedocumented in this encounter Additional Health Concerns Assessment Noted Time PHQ-9 Depression Total Score: 11 023 2:48 PM EST documented as of this encounter Care Teams Production Control Technologist Relationship Specialty Start Date End Date Dominick Nielsen MD [address] [place] [phone] PCP - General Internal Medicine 02/07/16 documented as of this encounter
--- OUTSIDE RECORDS SUMMARY | 2025-08-10 15:26 | XMS_ITS | Encounter Summary ---
Author Organization [employer] Address 75 [facility] 7t [place] [address] Care Team Providers Care Ssis Ssrs Developer Name Role Phone Dominick Nielsen MD Primary Care Provider [phone] Encounter Details Date Type Department Care Team (Late st Contact Info) Description 08/10/2025 Orders Only [facility] External Provider, [facility] Social History Tobacco Use Types Packs/Day Years [...] Procedure Name Priority Date/Time Associated Diagnosis Comments US PELVIS TRANSVAGINAL Routine 08/10/2025 12:46 PM EDT documented in this encounter Results * US Pelvis Transvaginal (08/10/2025 12:46 PM EDT) Anatomical Region Laterality Modality Pelvis Ultrasound 08/10/2025 12:4 6 PM EDT Narrative 08/10/2025 1:14 PM EDT [place] [address] Ultrasound Report Signed Patient: Justin Dillon MR#: [id number] : 1985 Acct:[id number] Age/Sex: 39 / F ADM Date: 08/10/25 Loc: .US Attending Dr: Hawa Walters CNM Ordering Physician: Hawa Walters CNM Date of Service: 08/10/25 Procedure(s): US pelvic and transvaginal Accession Number(s): [id number] cc: Dominick Nielsen MD; Hawa Walters CNM Reason for Exam: R10.20 - Pelvic and perineal pain unspecified side EXAMINATION: US PELVIS TRANSABDOMINAL AND TRANSVAGINAL HISTORY: R10.20 - Pelvic and perineal pain unspecified side COMPARISON: Comparison is made with the prior examination dated 02/06/2023. TECHNIQUE: Transabdominal and endovaginal real-time 2D cason-scale ultrasound was performed. FINDINGS: Uterus: The uterus is normal in size, measuring 6.3 x 4.0 x 4.1 cm. Myometrium has a normal echotexture. No fibroids are identified. Endometrium: The endometrial stripe measures 6 mm in thickness. An IUD is noted in appropriate position in the endometrial cavity. Right ovary: The right ovary measures 3.1 x 1.9 x 1.6 cm. The right ovary is normal in size and echotexture. Left ovary: The left ovary measures 3.4 x 1.9 x 1.8 cm. The left ovary is normal in size and echotexture. Pelvic fluid: none. US/US pelvic and transvaginal IMPRESSION: Unremarkable pelvic ultrasound. IUD in appropriate position in the endometrial canal. Electronically signed by: Gregorio Ambrosio MD 08/10/2025 01:10 PM EDT RP Dictated By: Gregorio Ambrosio MD Signed By: <Electronically signed by Gregorio Ambrosio MD in [place]> 08/10/25 1310 DD/ 1246 TD/TT: 08/10/25 1255 Technical Applications Scientist: Procedure Note Donotuseinterpreter, Image - 08/10/2025 [place] [address] Ultrasound Report Signed Patient: Gretchen Dillon#: [id number] : 1985Acct:[id number] Age/Sex: 39 / FADM Date: 08/10/25 Loc: HO.US Attending Dr: Hawa Walters CNM Ordering Physician: Hawa Walters CNM Date of Service: 08/10/25 Procedure(s): US pelvic and transvaginal Accession Number(s): [id number] cc: Dominick Nielsen MD; Hawa Walters CNM Reason for Exam: R10.20 - Pelvic and perineal pain unspecified side EXAMINATION: US PELVIS TRANSABDOMINAL AND TRANSVAGINAL HISTORY: R10.20 - Pelvic and perineal pain unspecified side COMPARISON: Comparison is made with the prior examination dated 02/06/2023. TECHNIQUE: Transabdominal and endovaginal real-time 2D cason-scale ultrasound was performed. FINDINGS: Uterus: The uterus is normal in size, measuring 6.3 x 4.0 x 4.1 cm. Myometrium has a normal echotexture. No fibroids are identified. Endometrium: The endometrial stripe measures 6 mm in thickness. An IUD is noted in appropriate position in the endometrial cavity. Right ovary: The right ovary measures 3.1 x 1.9 x 1.6 cm. The right ovary is normal in size and echotexture. Left ovary: The left ovary measures 3.4 x 1.9 x 1.8 cm. The left ovary is normal in size and echotexture. Pelvic fluid: none. US/US pelvic and transvaginal IMPRESSION: Unremarkable pelvic ultrasound. IUD in appropriate position in the endometrial canal. Electronically signed by: Gregorio Ambrosio MD 08/10/2025 01:10 PM EDT Dictated By: Gregorio Ambrosio MD Signed By: <Electronically signed by Gregorio Ambrosio MD in [place]> 08/10/25 1310 DD/ 1246 TD/TT: 08/10/25 1255 Technical Applications Scientist: [facility] External Provider IMG US PROCEDURES Final Result documented in this encounter Visit Diagnoses Not on filedocumented in this encounter Additional Health Concerns Assessment Noted Time PHQ-9 Depression Total Score: 4 10/28/19 25 1:55 PM EST documented as of this encounter Care Teams Ssis Ssrs Developer Relationship Specialty Start Date End Date Dominick Nielsen MD [address] [place] [address] PCP - General Internal Medicine 02/07/16 documented as of this encounter
--- OUTSIDE RECORDS SUMMARY | 2025-08-10 15:27 | XMS_ITS | Encounter Summary ---
Author Organization [employer] Address 75 [facility] 7t [place] [address] Care Team Providers Care Energy Crop Farmer Name Role Phone Dominick Nielsen MD Primary Care Provider [phone]- [phone] Encounter Details Date Type Department Care Team (Late st Contact Info) Description 03/06/2023 Orders Only [facility] CHC MED & PEDS [address] [place], [place] [phone] Dominick Nielsen MD [address] [place] [address] Social History Tobacco Use Types Packs/Day Years [...] documented as of this encounter Care Teams Energy Crop Farmer Relationship Specialty Start Date End Date Dominick Nielsen MD [address] [place] [address] PCP - General Internal Medicine 02/07/16 documented as of this encounter
--- OUTSIDE RECORDS SUMMARY | 2025-08-10 15:27 | XMS_ITS | Clinical Summary ---
Author Organization [employer] Address [address] [facility] 7t [place] [address] Care Team Providers Care Venetian Blind Worker Name Role Phone Dominick Nielsen MD Primary Care Provider [phone]- [phone] Allergies Active Allergy Reactions Criticality Noted Date [...] Encounters Date Type Department Care Team Description 08/10/2025 Orders Only [facility] External Provider, [facility] from Last 3 Months Immunizations Immunization Administration [...] of 2 - PCV) 2006 COVID-19 Vaccine ( - season) 2025 02/27/2021, 02/06/2021 Influenza Vaccine [...] PELVIS TRANSVAGINAL Routine 08/10/2025 12:46 PM EDT CHLAMYDIA/N. GONORRHOEAE RNA, TMA, UROGENITAL Routine 08/02/2025 9:30 AM EDT BACTERIAL VAGINOSIS PANEL Routine 08/02/2025 9:30 AM EDT CULTURE, URINE, ROUTINE Routine 07/12/2025 12:09 PM [...] Recently Relevant to Health Maintenance Results * US Pelvis Transvaginal (08/10/2025 12:46 PM EDT) Anatomical Region Laterality Modality Pelvis Ultrasound 08/10/2025 12:4 6 PM EDT Narrative 08/10/2025 1:14 PM EDT [place] [address] Ultrasound Report Signed Patient: Justin Dillon MR#: [id number] : 1985 Acct:[id number] Age/Sex: 39 / F ADM Date: 08/10/25 Loc: HO.US Attending Dr: Hawa Walters CNM Ordering Physician: Hawa Walters CNM Date of Service: 08/10/25 Procedure(s): US pelvic and transvaginal Accession Number(s): [id number] cc: Dominick Nielsen MD; Hawa Walters CNM [...] 08/10/25 1310 DD/ 1246 TD/TT: 08/10/25 1255 Pig Machine Crane Operator: Procedure Note Donotuseinterpreter, Image - 08/10/2025 [place] [address] Ultrasound Report Signed Patient: Gretchen Dillon#: [id number] : 1985Acct:[id number] Age/Sex: 39 / FADM Date: 08/10/25 Loc: HO.US Attending Dr: Hawa Walters CNM Ordering Physician: Hawa Walters CNM Date of Service: 08/10/25 Procedure(s): US pelvic and transvaginal Accession Number(s): [id number] cc: Dominick Nielsen MD; Hawa Walters CNM [...] 08/10/25 1310 DD/ 1246 TD/TT: 08/10/25 1255 Pig Machine Crane Operator: us [facility] External Provider IMG US PROCEDURES Final Result * Bacterial Vaginosis (08/02/2025 9:30 AM EDT) TRICHOMONAS VAGINALIS DETECTION BY PCR NOT DETECTED Not Detect [facility] BACTERIAL VAGINOSIS DETECTION BY PCR NEGATIVE Negative [facility] Comment:The BV organism targ ets of the Xpert Xpress MVP test can becommensal in women; Xpert Xpress MVP positive results forbacterial vaginosis should be considered in conjunction withother clinical and patient information to determine thedisease status. Organisms that are not detected by the XpertXpress MVP test have also been reported to be associatedwith BV and aerobic vaginitis.The Xpert Xpress MVP test performance has not been evaluatedin patients under the age of 14. ROSEANNA GROUP DETECTION BY PCR NOT DETECTED Not Detect [facility] Roseanna glab krusei PCR NOT DETECTED Not Detect [facility] 08/02/2025 9:30 AM EDT 08/02/2025 3:37 PM EDT us Generic External Data Provider LAB MICROBIOLOGY - GENERAL ORDERABLES Final Result [facility] [address] [place] [address] [phone] * Chlamydia/N. Gonorrhoeae RNA, TMA, Urogenitial (08/02/2025 9:30 AM EDT) Only the most recent of2 resultswithin the time period is included. CT PCR NOT DETECTED Not Detect. [facility] Comment:A not detected test result [...] psychologicalconsequences. NG PCR NOT DETECTED Not Detect. [facility] Comment:A not detected test result [...] lead to adverse medical, social or psychologicalconsequences. 08/02/2025 9:30 AM EDT 08/02/2025 3:37 PM EDT Generic External Data Provider LAB MICROBIOLOGY - GENERAL ORDERABLES Final Result [facility] [address] [place] [address] [phone] * Culture, Urine, Routine (07/12/2025 12:09 PM EDT) Urine Urine specimen obtained by clean catch procedure / Unknown 07/12/2025 12:09 PM EDT 07/12/2025 3:27 PM EDT Comment:UACC Narrative [facility] - 07/13/2025 12:15 PM EDT Urine Culture No growth. Specimen Source: Urine clean catch us Generic External Data Provider LAB MICROBIOLOGY - GENERAL ORDERABLES Final Result Performing Organization Address [facility] Co de Phone Number [facility] [address] [place] [phone] * HPV DNA, Low/High Risk (04/11/2025 1:48 PM EDT) HPV High Risk Negative Negative [facility] HPV Genotype 16 Negative Negative [facility] HPV Genotype 18 Negative Negative [facility] Comment:HPV testing performe d at [facility] (CLIA#[id number]), [address] [place] [address].Testing for HPV was performed using the Chiquita [...] ORDERAB LES Final Result Performing Organization Address [facility]/ZIP Co de Phone Number [facility] [address] [place] [phone] * Pap Smear (04/11/2025 1:48 PM EDT) 04/11/2025 1:48 PM EDT 04/12/2025 8:25 AM EDT Narrative [facility] - 04/18/2025 12:31 PM EDT ----- ------- Name: Justin Dillon Age/Sex: 39/F : 1985 Unit#: [id number] Attend Dr: Myron Pham MD Re04/11/25 Status: DEP REF Location: HO.LNP Disch: ----- ------- SPEC : [id number] RECD: 04/12/25 STATUS: LAURYN VASQUEZ NUM: [id number] SEPIDEH: 04/11/25-1348 [facility] [address]: Myron Pham MD ENTERED: 04/12/25 SP TYPE: Pap Smr KEKE MARTEL: Dominick Nielsen MD ORDERED: Pap Smear Interpretation [...] will be performed at [facility] (CLIA #[id number]), [address] [place] [address]. Testing for HPV was performed using the [...] detected. All professional services are performed by [facility] ([address] [place] [address]; ; CLIA #[id number]). The PAP Test is a screening procedure with the inherent possibility of both false negative and false positive results. Results should be interpreted in the context of historic and current clinical findings. Reliability of the PAP Test is enhanced by performing the test on a regular repetitive basis. CONTINUED ON NEXT PAGE ----- ------- Name: Justin Dillon Age/Sex: 39/F : 1985 Unit#: [id number] Attend Dr: Myron Pham MD Re04/11/25 Status: DEP REF Location: .LN Disch: ----- ------- SPEC : [id number] RECD: 04/12/25 STATUS: LAURYN VASQUEZ NUM: [id number] SEPIDEH: 04/11/25-[address] [facility] [address]: Myron Pham MD ENTERED: 04/12/25 SP TYPE: Pap Smr OTHR DR: Dominick Nielsen MD ORDERED: Pap Smear Copies To: Dominick Nielsne MD [address] [address] Myron Pham MD [facility] [address] [place], [place] [phone] ----- ------- Signed (signature on file) TRISTAN Carrasco (ASC) 04/18/25 1231 ----- ------- END OF REPORT us Generic External Data Provider LAB CYTOLOGY FRANK TOLLIVER Final Result [facility] [address] [place] [address] [phone] * Hepatitis C Antibody with Reflex to HCV, RNA, Quantitative, Real-Time PCR (11/01/2024 8:27 AM EST) Hepatitis C Antibody Nonreactive Nonreactive [facility] Comment:Antibodies to HCV no t detected; does not exclude early acuteHCV infection. Blood Venous blood specimen / Unknown 11/01/2024 8:27 AM EST 11/01/2024 2:45 PM EST us Dominick Nielsen MD LAB BLOOD ORDERABLES Final Result Performing Organization Address City/[facility]/ZIP Co de Phone Number [facility] [address] [place] [phone] * HIV-1/2 Antigen and Antibodies, Fourth Generation, with Reflexes (11/01/2024 8:27 AM EST) HIV AB/AG Nonreactive Nonreactive [facility] Comment:HIV-1 p24 Ag and/or HIV-1/HIV-2 Ab not detected.A test result that is nonreactive does not exclude thepossibility of exposure to or infection with HIV-1 and/orHIV-2. Nonreactive results in this assay for individualswith prior exposure to HIV-1 and/or HIV-2 may be due toantigen and antibody levels that are below the limit ofdetection of this assay.The 3D Product [employer] HIV Ag/Ab Combo assay result andsupplemental assay results should be interpreted inconjunction with the patient's clinical presentation,history and other laboratory results. If the results areinconsistent with clinical evidence, additional testing issuggested to confirm the result. Blood Venous blood specimen / Unknown 11/01/2024 8:27 AM EST 11/01/2024 2:45 PM EST us Dominick Nielsen MD LAB BLOOD ORDERABLES Final Result Performing Organization Address City/[facility]/ZIP Co de Phone Number [facility] [address] [place] [phone] from Last 3 Months or Most Recently Relevant to Health Maintenance [place] [address] [place] [address] C3 Care Teams Venetian Blind Worker Relationship Specialty Start Date End Date Dominick Nielsen MD [address] [place] [phone] PCP - General Internal Medicine 02/07/16
--- OUTSIDE RECORDS SUMMARY | 2025-08-10 15:27 | XMS_ITS | Encounter Summary ---
Author Organization [facility] Address [address] [facility] 7t [place] [address] Care Team Providers Care Fish Culturist Name Role Phone Dominick Nielsen MD Primary Care Provider [phone] Encounter Details Date Type Department Care Team (Late st Contact Info) Description 07/07/2023 Orders Only [facility] [address] [place] [address] Provider, Lev, Social History Tobacco Use Types [...] documented as of this encounter Care Teams Fish Culturist Relationship Specialty Start Date End Date Dominick Nielsen MD [address] [place] [address] PCP - General Internal Medicine 02/07/16 documented as of this encounter
--- OUTSIDE RECORDS SUMMARY | 2025-08-10 15:27 | XMS_ITS | Encounter Summary ---
Author Organization [employer] Address [address] [facility] 7t [place] [address] Care Team Providers Care Filler Room Attendant Name Role Phone Dominick Nielsen MD Primary Care Provider [phone] Encounter Details Date Type Department Care Team (Late st Contact Info) Description 05/22/2023 Orders Only [facility] [address] [place] [address] Dominick Nielsen MD [address] [place] [address] Social History Tobacco Use Types Packs/Day Years [...] documented as of this encounter Care Teams Filler Room Attendant Relationship Specialty Start Date End Date Dominick Nielsen MD [address] [place] [address] PCP - General Internal Medicine 02/07/16 documented as of this encounter
--- OUTSIDE RECORDS SUMMARY | 2025-08-10 15:27 | XMS_ITS | Encounter Summary ---
Author Organization [employer] Address [address] [facility] 7t [place] [address] Care Team Providers Care Bond Broker Name Role Phone Dominick Nielsen MD Primary Care Provider [phone] Encounter Details Date Type Department Care Team (Late st Contact Info) Description 07/07/2023 Orders Only [facility] MED[facility]INE [address] [place] [address] Suzan Mckinley Social History Tobacco Use Types [...] documented as of this encounter Care Teams Bond Broker Relationship Specialty Start Date End Date Dominick Nielsen MD [address] [place] [address] PCP - General Internal Medicine 02/07/16 documented as of this encounter
--- OUTSIDE RECORDS SUMMARY | 2025-08-10 15:27 | XMS_ITS | Encounter Summary ---
Author Organization [employer] Address [address] [facility] 7t [place] [address] Care Team Providers Care Cardiac Catheterization Technician Name Role Phone Dominick Nielsen MD Primary Care Provider [phone] Encounter Details Date Type Department Care Team (Late st Contact Info) Description 02/18/2024 Orders Only [facility] [address] [place], [place] [phone] Dominick Nielsen MD [address] [place] [address] Perleche (Primary Dx); Rash in adult Social [...] documented as of this encounter Care Teams Cardiac Catheterization Technician Relationship Specialty Start Date End Date Dominick Nielsen MD [address] [place] [phone] PCP - General Internal Medicine 02/07/16 documented as of this encounter
== END 2025-08-10 12:35 | disposition home or self-care (01) ==
LOC: HO.US 12:34
PROVIDERS: PCP Internal Medicine; Visit Provider Advanced Practice Midwife
DX: Z30.431 Encounter for routine checking of intrauterine contraceptive device (principal); R10.20 Pelvic and perineal pain unspecified side
CPT/HCPCS: 76830; 76856

== ENCOUNTER → 2025-08-10 12:36 | Outpatient (BNV) | payer MEDICAID, SELFPAY | PROVIDERS: PCP Internal Medicine; Visit Provider Radiology Diagnostic Radiology | DX: R10.20 Pelvic and perineal pain unspecified side (principal) | CPT/HCPCS: 76830; 76856 ==

== ENCOUNTER 2025-09-26 10:38 | Outpatient (AMB) | payer MEDICAID, SELFPAY ==
--- NOTE | 2025-09-26 11:16 | A.OFFVIS_ITS ---
Vital Signs 09/26/25 11:21 Height 5 ft 1 in Weight 145 lb BMI 27.4 BP 114/66 Intake Visit Reasons: Ultrasound follow up [employer] Counselor Required: No Information Interpreted: non-clinical & clinical Accompanied by: Self / Same As Patient Allergies aspirin Allergy (Mild, Verified 09/26/25 11:21) Rash Is last menstrual period known: No (mirena) HPI Comments Details: Presenting for follow-up regarding her pelvic pain. The patient is doing well. The following workup was done so far: GC/CT negative. Last visit urine test was negative. Last visit urine dip was negative. Pelvic ultrasound showed the following: IMPRESSION: Unremarkable pelvic ultrasound. IUD in appropriate position in the endometrial canal [facility] Medical History IUD surveillance Scoliosis COVID-19 vaccine series completed TOMASA I (cervical intraepithelial neoplasia I) History of asthma Surgical History History of lumpectomy of right breast (07/16/22) History of loop electrical excision procedure (LEEP) Hx of abdominoplasty Hx of breast augmentation (2017) Hx of appendectomy Family History Maternal Grandmother Diabetes HTN (hypertension) Social History Household Members Other:: son (minor child) Are you a primary wound care physician to a significant other at home: Yes Do you presently have visiting nurse or other home services: No Alcohol intake: never Patient Tobacco Use Status: Never used Tobacco Sexual orientation: Straight/Heterosexual Gender identity: Female Female Reproductive History Menstrual Age of Menarche: 15 Review of Systems Const All systems reviewed & are unremarkable except as noted in HPI and below Reports as per HPI and Reports no additional complaints GI Reports no additional complaints Reports no additional complaints Physical Exam Vital Signs: Last Vital Signs BP 114/66 09/26/25 11:21 BMI result Body Mass Index 27.4 Assessment & Plan Assessment & Plan (1) Pelvic pain: Code(s): R10.2 - Pelvic and perineal pain Category: Medical Plan: Discussed with the patient the results of the workup done including negative GC/chlamydia, urine dip, urine test and pelvic ultrasound. Differential diagnosis of neckties painter causes that have not be ruled out yet include but not limited to endometriosis, pelvic adhesions , or others. Recommended for the patient to see her PCP for further workup for non neckties painter causes; if the all the results are negative and the patient's pelvic pain is persistent, instructions given to patient to call back for further testing. Meanwhile, instructions were given the patient to go to emergency room or call in case of fever above 100.4, heavy vaginal bleeding, persistence or worsening of her pelvic pain. All questions answered, the patient verbalized understanding. Coding Level of Care Code Est Pt Level 3 (85864) Diagnoses Pelvic pain R10.2
[2025-09-26 11:21] VITALS: BP 114/66; BMI 27.4
--- OUTSIDE RECORDS SUMMARY | 2025-09-26 13:30 | XMS_ITS | Encounter Summary ---
Author Organization [employer] Address [address] [facility] 7t [place] [address] Care Team Providers Care End Stapler Name Role Phone Dominick Nielsen MD Primary Care Provider [phone] Reason for Visit * Reason Onset Date Comments Nurse Triage 07/11/2024 Encounter Details Date Type Department Care Team (Late st Contact Info) Description 07/11/2024 Telephone [facility] [address] [place] [address] Dominick Nielsen MD [address] [place] [address] Nurse Triage Social History Tobacco Use Types [...] 3:36 PM EDT Triage call returned with Brainly Kiln Charger [phone]. Patient with HSN as verified with Darian. Patient had bilateral breast implants removed in April in the [place]. Patient with ongoing non healing area [...] Team tasked tofkenyaow with appt. Patient provided [facility] hours and availability as [...] The caller accepted this outcome. Patient speaks latvian documented in this encounter Plan of Treatment Not on file documented as of this encounter Visit Diagnoses Not on filedocumented in this encounter Additional Health Concerns Assessment Noted Time PHQ-9 Depression Total Score: 11 023 2:48 PM EST documented as of this encounter Care Teams End Stapler Relationship Specialty Start Date End Date Dominick Nielsen MD [address] [place] [address] PCP - General Internal Medicine 02/07/16 documented as of this encounter
--- OUTSIDE RECORDS SUMMARY | 2025-09-26 13:30 | XMS_ITS | Clinical Summary ---
Author Organization [employer] Address [address] [facility] [address] [place] [address] Care Team Providers Care Chief Of Pediatric Urology Name Role Phone Dominick Nielsen MD Primary Care Provider [phone] Allergies Active Allergy Reactions Criticality Noted Date [...] Department Care Team Description 08/10/2025 Orders Only [facility] External Provider, [facility] from Last 3 Months Immunizations Immunization [...] PM EDT Narrative 08/10/2025 1:14 PM EDT [place] [id number] Ultrasound Report Signed Patient: Justin Dillon MR#: [id number] 895 : 1985 Acct:[id number] Age/Sex: 39 / F ADM Date: 08/10/25 Loc: HO.US Attending Dr: Hawa Walters CNM Ordering Physician: Hawa Walters CNM Date of Service: 08/10/25 Procedure(s): US pelvic and transvaginal Accession Number(s): [id number] cc: Dominick Nielsen MD; Hawa Walters CNM [...] 08/10/25 1310 DD/ 1246 TD/TT: 08/10/25 1255 Ham Marker: Procedure Note Donotuseinterpreter, Image - 08/10/2025 [place] [address] Ultrasound Report Signed Patient: Gretchen Dillon#: [id number] [id number] : 1985Acct:[id number] Age/Sex: 39 / FADM Date: 08/10/25 Loc: HO.US Attending Dr: Hawa Walters CNM Ordering Physician: Hawa Walters CNM Date of Service: 08/10/25 Procedure(s): US pelvic and transvaginal Accession Number(s): [id number] cc: Dominick Nielsen MD; Hawa Walters CNM [...] 08/10/25 1310 DD/ 1246 TD/TT: 08/10/25 1255 Ham Marker: us [facility] External Provider IMG US PROCEDURES Final Result * Bacterial Vaginosis (08/02/2025 9:30 AM EDT) TRICHOMONAS VAGINALIS DETECTION BY PCR NOT DETECTED Not Detect [facility] BACTERIAL VAGINOSIS DETECTION BY PCR NEGATIVE Negative [facility] Comment:The BV organism targ ets [...] DETECTION BY PCR NOT DETECTED Not Detect [facility] Roseanna glab krusei PCR NOT DETECTED Not Detect [facility] 08/02/2025 9:30 AM EDT 08/02/2025 3:37 PM EDT us Generic External Data Provider LAB MICROBIOLOGY - GENERAL ORDERABLES Final Result [facility] [address] [place] [address] [phone] * Chlamydia/N. Gonorrhoeae RNA, TMA, Urogenitial (08/02/2025 9:30 AM EDT) Only the most recent of2 resultswithin the time period is included. CT PCR NOT DETECTED Not Detect. [facility] Comment:A not detected test result [...] psychologicalconsequences. NG PCR NOT DETECTED Not Detect. [facility] Comment:A not detected test result [...] LAB MICROBIOLOGY - GENERAL ORDERABLES Final Result [facility] [address] [place] [phone] [phone] * Culture, Urine, Routine (07/12/2025 12:09 PM EDT) Urine Urine specimen obtained by clean catch procedure / Unknown 07/12/2025 12:09 PM EDT 07/12/2025 3:27 PM EDT Comment:UACC Narrative [facility] - 07/13/2025 12:15 PM EDT Urine Culture No growth. Specimen Source: Urine clean catch us Generic External Data Provider LAB MICROBIOLOGY - GENERAL ORDERABLES Final Result Performing Organization Address [facility] Co de Phone Number [facility] [address] [place] [phone] * HPV DNA, Low/High Risk (04/11/2025 1:48 PM EDT) HPV High Risk Negative Negative [facility] HPV Genotype 16 Negative Negative [facility] HPV Genotype 18 Negative Negative [facility] Comment:HPV testing performe d at [facility] (CLIA#[id number]), [address] [place] [address].Testing for HPV was performed using the Chiquita [...] ORDERAB LES Final Result Performing Organization Address [facility]/ZIP Co de Phone Number [facility] [address] [place] [phone] * Pap Smear (04/11/2025 1:48 PM EDT) 04/11/2025 1:48 PM EDT 04/12/2025 8:25 AM EDT Narrative [facility] - 04/18/2025 12:31 PM EDT ----- ------- Name: Justin Dillon Age/Sex: 39/F : 1985 Unit#: [id number] Attend Dr: Myron Pham MD Re04/11/25 Status: DEP REF Location: HO.LNP Disch: ----- ------- SPEC : [id number] RECD: 04/12/25 STATUS: LAURYN VASQUEZ NUM: [id number] SEPIDEH: 04/11/25-[address] [facility] [address]: Myron Pham MD ENTERED: 04/12/25 SP [...] and HPV testing will be performed at [facility] (CLIA #[id number]), [address] [place] [address]. Testing for HPV was performed using the [...] detected. All professional services are performed by [facility] ([address] [place] [address]; ; CLIA #[id number]). The PAP Test is a screening procedure with the inherent possibility of both false negative and false positive results. Results should be interpreted in the context of historic and current clinical findings. Reliability of the PAP Test is enhanced by performing the test on a regular repetitive basis. CONTINUED ON NEXT PAGE ----- ------- Name: Justin Dillon Age/Sex: 39/F : 1985 Unit#: [id number] Attend Dr: Myron Pham MD Re04/11/25 Status: DEP REF Location: .LN Disch: ----- ------- SPEC : [id number] RECD: 04/12/25 STATUS: LAURYN VASQUEZ NUM: [id number] SEPIDEH: 04/11/25-[address] [facility] [address]: Myron Pham MD ENTERED: 04/12/25 SP TYPE: Pap Smr OTHR DR: Dominick Nielsen MD ORDERED: Pap Smear Copies To: Dominick Nielsen MD [address] [address] Myron Pham MD [facility] [address] [place], [place] [phone] ----- ------- Signed (signature on file) TRISTAN Carrasco (ASC) 04/18/25 1231 ----- ------- END OF REPORT us Generic External Data Provider LAB CYTOLOGY FRANK TOLLIVER Final Result [facility] [address] [place] [address] [phone] * Hepatitis C Antibody with Reflex to HCV, RNA, Quantitative, Real-Time PCR (11/01/2024 8:27 AM EST) Hepatitis C Antibody Nonreactive Nonreactive [facility] Comment:Antibodies to HCV no t detected; does not exclude early acuteHCV infection. Blood Venous blood specimen / Unknown 11/01/2024 8:27 AM EST 11/01/2024 2:45 PM EST us Dominick Nielsen MD LAB BLOOD ORDERABLES Final Result Performing Organization Address City/[facility]/ZIP Co de Phone Number [facility] [address] [place] [phone] * HIV-1/2 Antigen and Antibodies, Fourth Generation, with Reflexes (11/01/2024 8:27 AM EST) HIV AB/AG Nonreactive Nonreactive [facility] Comment:HIV-1 p24 Ag and/or HIV-1/HIV-2 Ab not detected.A test result that is nonreactive does not exclude thepossibility of exposure to or infection with HIV-1 and/orHIV-2. Nonreactive results in this assay for individualswith prior exposure to HIV-1 and/or HIV-2 may be due toantigen and antibody levels that are below the limit ofdetection of this assay.The [employer] HIV Ag/Ab Combo assay result andsupplemental assay results should be interpreted inconjunction with the patient's clinical presentation,history and other laboratory results. If the results areinconsistent with clinical evidence, additional testing issuggested to confirm the result. Blood Venous blood specimen / Unknown 11/01/2024 8:27 AM EST 11/01/2024 2:45 PM EST us Domniick Nielsen MD LAB BLOOD ORDERABLES Final Result Performing Organization Address City/[facility]/ZIP Co de Phone Number [facility] [address] [place] [phone] from Last 3 Months or Most Recently Relevant to Health Maintenance [place] [address] [place] [address] C3 Care Teams Chief Of Pediatric Urology Relationship Specialty Start Date End Date Dominick Nielsen MD [address] [place] [phone] PCP - General Internal Medicine 02/07/16
--- OUTSIDE RECORDS SUMMARY | 2025-09-26 13:30 | XMS_ITS | Encounter Summary ---
Author Organization [employer] Address [address] [facility] 7t [place] [address] Care Team Providers Care Ferris Wheel Operator Name Role Phone Dominick Nielsen MD Primary Care Provider [phone] Encounter Details Date Type Department Care Team (Late st Contact Info) Description 05/22/2023 Orders Only [facility] [address] [place] [address] Dominick Nielsen MD [address] [place] [address] Social History Tobacco Use Types Packs/Day Years [...] documented as of this encounter Care Teams Ferris Wheel Operator Relationship Specialty Start Date End Date Dominick Nielsen MD [address] [place] [address] PCP - General Internal Medicine 02/07/16 documented as of this encounter
--- OUTSIDE RECORDS SUMMARY | 2025-09-26 13:30 | XMS_ITS | Encounter Summary ---
Author Organization [employer] Address [address] [facility] 7t [place] [address] Care Team Providers Care Quilt Sewer Name Role Phone Dominick Nielsen MD Primary Care Provider [phone] Encounter Details Date Type Department Care Team (Late st Contact Info) Description 02/18/2024 Orders Only [facility] P[facility]S [address] [place], [place] [phone] Dominick Nielsen MD [address] [place] [address] Perleche (Primary Dx); Rash in adult Social [...] documented as of this encounter Care Teams Quilt Sewer Relationship Specialty Start Date End Date Dominick Nielsen MD [address] [place] [phone] PCP - General Internal Medicine 02/07/16 documented as of this encounter
--- OUTSIDE RECORDS SUMMARY | 2025-09-26 13:30 | XMS_ITS | Encounter Summary ---
Author Organization [employer] Address [address] [facility] 7t [place] [address] Care Team Providers Care Felting Machine Operator Helper Name Role Phone Dominick Nielsen MD Primary Care Provider [phone] Encounter Details Date Type Department Care Team (Late st Contact Info) Description 03/06/2023 Orders Only [facility] PEDS [address] [place], [place] [phone] Dominick Nielsen MD [address] [place] [address] Social History Tobacco Use Types Packs/Day Years [...] documented as of this encounter Care Teams Felting Machine Operator Helper Relationship Specialty Start Date End Date Dominick Nielsen MD [address] [place] [phone] PCP - General Internal Medicine 02/07/16 documented as of this encounter
--- OUTSIDE RECORDS SUMMARY | 2025-09-26 13:30 | XMS_ITS | Encounter Summary ---
Author Organization [employer] Address [address] [facility] 7[address] [place] [address] Care Team Providers Care Agricultural Engineer Name Role Phone Dominick Nielsen MD Primary Care Provider [phone] Encounter Details Date Type Department Care Team (Late st Contact Info) Description 07/07/2023 Orders Only [facility] [address] [place] [address] Suzan Mckinley Social History Tobacco Use Types [...] documented as of this encounter Care Teams Agricultural Engineer Relationship Specialty Start Date End Date Dominick Nielsen MD [address] [place] [address] PCP - General Internal Medicine 02/07/16 documented as of this encounter
--- OUTSIDE RECORDS SUMMARY | 2025-09-26 13:30 | XMS_ITS | Encounter Summary ---
Author Organization [employer] [facility] Address [address] [facility] 7t [place] [address] Care Team Providers Care Server Systems Administrator Name Role Phone Dominick Nielsen MD Primary Care Provider [phone] Encounter Details Date Type Department Care Team (Late st Contact Info) Description 07/07/[address] [facility] [address] [place] [address] Provider, Lev, Social History Tobacco Use Types [...] documented as of this encounter Care Teams Server Systems Administrator Relationship Specialty Start Date End Date Dominick Nielsen MD [address] [place] [phone] PCP - General Internal Medicine 02/07/16 documented as of this encounter
--- OUTSIDE RECORDS SUMMARY | 2025-09-26 13:30 | XMS_ITS | Clinical Summary ---
Author Organization [facility] Address [address] [place] [address] Care Team Providers Care Laborer Wrecking And Salvaging Name Role Phone Dominick Nielsen MD Primary Care Provider [phone] Surgical History Surgery Date Site/Laterality Comments APPENDECTOMY [...] on file Sexual Orientation Not on file Plan of Treatment Health Maintenance Due Date Last Done Comments Cervical Cancer Screening: P ap Smear 2008 HPV Vaccines (1 - 3-dose SCD M series) 2014 HIV Screening 09/09/2022 Hepatitis C Screening 09/09/2022 Social Influencers of Health Screening 09/09/2022 Depression Screening 10/12/2024 COVID-19 Vaccine ( - 2024-2 6 season) 2025 Influenza Vaccine (#1) 2025 DTaP,Tdap,and [...] age to complete this topic Care Teams Laborer Wrecking And Salvaging Relationship Specialty Start Date End Date Dominick Nielsen MD [address] [place] [address] PCP - General Internal Medicine 06/24/22
== END 2025-09-26 11:34 | disposition home or self-care (01) ==
LOC: HO.HWS 10:39
PROVIDERS: PCP Internal Medicine; Visit Provider Obstetrics & Gynecology
DX: R10.20 Pelvic and perineal pain unspecified side (principal)
CPT/HCPCS: 99213

== ENCOUNTER → 2025-09-26 10:38 | Outpatient (BNVA) | payer MEDICAID, SELFPAY | PROVIDERS: PCP Internal Medicine; Visit Provider Obstetrics & Gynecology | DX: R10.20 Pelvic and perineal pain unspecified side (principal) | CPT/HCPCS: 99212 ==